=== PATIENT | female | born 1985 | race American Indian/Alaskan Native ===

== ENCOUNTER 2017-06-10 09:45 | Inpatient (IN) | payer OTHER ==
[2017-06-10 09:51] VITALS: BMI 30.8
[2017-06-10] MEDS ORDERED: Enoxaparin 30 mg Syringe SC STA (09:57)
--- NOTE | 2017-06-10 10:03 | C.PDOC ---
History Of Present Illness SUDDEN ONSET SOB SINCE THIS MORNING. PS AWOKE "NORMALLY", STARTED DOING ROUTINE ACTIVITY AND SUDDENLY BECAME SOB. WORSE W LIGHT EXERTION. CURRENTLY CO SOB AT REST. NO ASSOC CP. +FLIGT 06/06, HAD R ANKLE SWELLING BUT RESOLVED. SIM R ANKLE SWELLING 1 MO AGO SP OUTPT DOPPLER "BUT WAS NEGATIVE", PS WAS TOLD WAS DUE TO HERNIATED DISC. NO OTHER ASSOC SX EXAM MILD DIST NONTOXIC HEENT NEG LUNGS CTA B/L NO W/R/R +TACHYPNEA NO RETRACTIONS APPEARS WINDED AFTER PROLONGED TALKING CV RRR SINUS TACH EXT +R LEG SWELL NO EDEMA NONTEND SKIN NEG REMAINDE RNEG History Per: Patient History/Exam Limitations: no limitations Onset/Duration Of Symptoms: Hrs Current Symptoms Are (Timing): Still Present Exacerbating Factor(s): Exertion (WORSE WITH LIGHT EXERTION) Associated Symptoms: Ankle/Leg Swelling (R ANKLE - RESOLVED). denies: Fever, Chills, Chest Pain Recent travel outside of the [place]: No Past Medical History Reviewed: Historical Data, Nursing Documentation, Vital Signs Vital Signs: Last Vital Signs Temp 97.5 F L 06/10/17 11:30 Pulse 123 H 06/10/17 11:30 Resp 20 06/10/17 11:30 BP 134/90 06/10/17 11:30 Pulse Ox 99 06/10/17 11:39 Family History: States: Unknown Family Hx - Social History Hx Alcohol Use: No Hx Substance Use: No Review Of Systems Except As Marked, All Systems Reviewed And Found Negative. Constitutional: Negative for: Fever, Chills Cardiovascular: Negative for: Chest Pain Respiratory: Positive for: SOB with Excertion. Negative for: Cough Gastrointestinal: Negative for: Nausea, Vomiting, Abdominal Pain Skin: Negative for: Rash Neurological: Negative for: Headache, Dizziness Physical Exam - Physical Exam Appears: Non-toxic, Other (MILD DISTRESS) Skin: Normal Color, Warm, Dry Head: Atraumatic, Normacephalic Eye(s): bilateral: Normal Inspection, PERRL, EOMI Ear(s): Bilateral: Normal Nose: Normal Oral Mucosa: Moist Throat: Normal, No Erythema, No Exudate Neck: Normal ROM, Supple Chest: Symmetrical Cardiovascular: Rhythm Regular (SINUS TACH) Respiratory: No Accessory Muscle Use, No Rales, No Rhonchi, No Wheezing, Other ( +TACHYPNEA, NO RETRACTIONS, APPEARS WINDED AFTER PROLONGED TALKING) Back: Normal Inspection Extremity: Normal ROM, Capillary Refill (< 2 SEC.), Other (+R LEG SWELL NO EDEMA NONTEND) Extremity: Bilateral: Normal Color And Temperature Neurological/Psych: Oriented x3, Normal Speech, Normal Cognition ED Course And Treatment - Laboratory Results Result Diagrams: 06/10/17 10:23 06/10/17 10:23 Urine POC: Negative ECG: Interpreted By Me ECG Rhythm: Sinus Tachycardia ECG Interpretation: Abnormal Rate From EC (BPM) O2 Sat by Pulse Oximetry: 99 (RA) Pulse Ox Interpretation: Normal - Radiology CXR: Interpreted by Me CXR Interpretation: Yes: No Acute Disease - CT Scan/US CT ANGIO CHEST Other Rad Studies (CT/US): Read By Radiologist, Radiology Report Reviewed CT/US Interpretation: FINDINGS: PULMONARY ARTERIES: There is a large central saddle like pulmonary arterial empolism. Its central to right sided extension is 1.3 cm anterior-posterior with a width of 4.9 cm. The left embolism is thinner almost 1/3 the width of the left main pulmonary artery. Emboli continuing to the left lower lobe pulmonary arterial branches unlikely those on the right as well. AORTA: No thoracic aortic aneurysm. LUNGS: . No nodule, mass or pulmonary consolidation. PLEURAL SPACES: Unremarkable. No effusion or pneuomothorax. HEART: Unremarkable. No cardiomegaly. No significant pericardial effusion. LYMPH NODES: Excluding any concomitant mild subcarinal or right perihilar lymphadenopathy is limited. No gross suspect lymphadenopathy appreciated. BONES, CHEST WALL: Unremarkable. No fracture or destructive lesion. OTHER FINDINGS: Unremarkable. IMPRESSION: large central saddle like pulmonary arterial empolism. . Findings were immediately called in to the ER and directly given to Dr. Green at 10:56 a.m. Progress - Re-Evaluation Re-evaluation Note: 06/10/17 09:57 VENOUS DUPLEX SCAN, CT ANGIO CHEST, EKG, CXR, BLOODWORK ORDERED. TREATED WITH LOVENOX. ON DIGITAL BUSINESS ANALYST. 06/10/17 10:11 DUE TO HIGH LIKELIHOOD OF PE, WILL TREAT NOW AND STAT CTA WITHOUT FULL RESULTS. 06/10/17 11:00 exam unch FROM PRIOR STABLE D/W DR CEJA MED FOUNDRY MOLDER WILL ADMIT PENDING CALLBACK DR VASQUEZ ICU 06/10/17 11:39 D/W DR VASQUEZ WILL EVAL IN ER 06/10/17 11:50 S/P EVAL DR VASQUEZ, STAT ECHO. ACCEPTS FOR ICU - Data Reviewed Data Reviewed: Lab, Diagnostic imaging, EKG, Old records - Critical Care Citical Care: Excluding Proc Time Critical Care Time: 120 minutes Disposition Counseled Patient/Family Regarding: Studies Performed, Diagnosis - Disposition Disposition: HOSPITALIZED Disposition Time: 11:01 Condition: SERIOUS - POA Present On Arrival: None - Clinical Impression Clinical Impression: Pulmonary embolism, Dyspnea - Scribe Statement The provider has reviewed the documentation as recorded by the Scribe SM All medical record entries made by the Scribe were at my direction and personally dictated by me. I have reviewed the chart and agree that the record accurately reflects my personal performance of the history, physical exam, medical decision making, and the department course for this patient. I have also personally directed, reviewed, and agree with the discharge instructions and disposition. Decision To Admit - Pt Status Changed To: Hospital Disposition Of: Inpatient - Admit Certification Admit to Inpatient:: After my assessment, the patient will require hospitalization for at least two midnights. This is because of the severity of symptoms shown, intensity of services needed, and/or the medical risk in this patient being treated as an outpatient. - InPatient: Physician Admission Certification: I certify that this patient requires 2 or more midnights of care for the following reason:: SEE NOTE - . Bed Request Type: ICU Admitting Physician: Victor M Ceja Jr. Patient Diagnosis: Pulmonary embolism, Dyspnea
[2017-06-10] MEDS ORDERED: Enoxaparin 150 mg Syringe SC STA (10:07)
[2017-06-10] MEDS ORDERED: Sodium Chloride 0.9% 1,000 ML IV ONE (10:11)
--- NOTE | 2017-06-10 10:12 | RAD ---
HISTORY: SOB, TACHY COMPARISON: None available. TECHNIQUE: Chest, one view. FINDINGS: Examination limited by habitus. LUNGS: No focal consolidation. Please note that chest x-ray has limited sensitivity for the detection of pulmonary masses. PLEURA: No significant pleural effusion identified. No definite pneumothorax . CARDIOVASCULAR: The cardiomediastinal silhouette appears within normal limits of size. OSSEOUS STRUCTURES: No acute osseous abnormality identified. VISUALIZED UPPER ABDOMEN: Unremarkable. OTHER FINDINGS: None. IMPRESSION: No focal consolidation, significant pleural effusion, or definite pneumothorax identified.
[2017-06-10] MEDS ORDERED: Iodixanol 320 MG/ML 100 ML BOTTLE IV ONE (10:14)
[2017-06-10 10:26] LABS: BASO % 0.4 % (0.0-2.0); EOS # 0.2 K/uL (0.0-0.7); EOS % 2.9 % (0.0-4.0); LYMPH # 1.3 K/uL (1.0-4.3); LYMPH % 18.5 % (20.0-40.0); MEAN CORPUSCULAR HEMOGLOBIN 28.8 pg (27.0-31.0); MEAN CORPUSCULAR HGB CONC 33.9 g/dL (33.0-37.0); MEAN PLATELET VOLUME 8.5 fL (7.2-11.7); MONO # 0.3 K/uL (0.0-0.8); MONO % 4.5 % (0.0-10.0); NRBC % 0.1 % (0.0-2.0); RED CELL DISTRIBUTION WIDTH 12.4 % (11.5-14.5); WHITE BLOOD COUNT 7.2 K/uL (4.8-10.8)
[2017-06-10 10:39] LABS: ALB/GLOB RATIO 1.1 (1.0-2.1); ALKALINE PHOSPHATASE 74 U/L (38-126); ALT/SGPT 18 U/L (9-52); AST/SGOT 18 U/L (14-36); BILIRUBIN,TOTAL 0.4 mg/dL (0.2-1.3); BLOOD UREA NITROGEN 9 mg/dL (7-17); CALCIUM 9.5 mg/dl (8.6-10.4); CARBON DIOXIDE 23 mmol/L (22-30); CHLORIDE 104 mmol/L (98-107); GFR AFRICAN-AMERICAN > 60; GLUCOSE,RANDOM 90 mg/dL (65-105); SODIUM 143 mmol/L (132-148); TOTAL PROTEIN 7.6 g/dL (6.3-8.3)
--- NOTE | 2017-06-10 11:07 | CT ---
PROCEDURE: CT Chest with contrast (Pulmonary Angiogram) HISTORY: SOB TACHY COMPARISON: None available. TECHNIQUE: Axial computed tomography images were obtained of the chest in the pulmonary arterial phase of enhancement. Coronal and sagittal reformatted images were created and reviewed. Intravenous contrast dose: 100 mL Visipaque 320 Radiation dose: Total exam DLP = 596 mGy-cm. This CT exam was performed using one or more of the following dose reduction techniques: Automated exposure control, adjustment of the mA and/or kV according to patient size, and/or use of iterative reconstruction technique. FINDINGS: PULMONARY ARTERIES: There is a large central saddle like pulmonary arterial empolism. Its central to right sided extension is 1.3 cm anterior-posterior with a width of 4.9 cm The left embolism is thinner almost 1/3 the width of the left main pulmonary artery. Emboli continuing to the left lower lobe pulmonary arterial branches unlikely those on the right as well AORTA: No thoracic aortic aneurysm. LUNGS: . No nodule, mass or pulmonary consolidation. PLEURAL SPACES: Unremarkable. No effusion or pneuomothorax. HEART: Unremarkable. No cardiomegaly. No significant pericardial effusion. LYMPH NODES: Excluding any concomitant mild subcarinal or right perihilar lymphadenopathy is limited. No gross suspect lymphadenopathy appreciated BONES, CHEST WALL: Unremarkable. No fracture or destructive lesion OTHER FINDINGS: Unremarkable. IMPRESSION: large central saddle like pulmonary arterial empolism. . Findings were immediately called in to the ER and directly given to Dr. Green at 10:56 a.m.
--- NOTE | 2017-06-10 15:00 | CP.PCM.CON ---
<TipIvánángel - Last Filed: 06/10/17 16:57> History of Present Illness - History of Present Illness History of Present Illness: Resident Consult Note for Dr. Aparicio 32 year old female with no significant past medical history presents to the ED for shortness of breath after waking up this morning. Patient states the shortness of breath had a sudden onset and it is worse with minimal exertion. Patient flew in from [place] this past weekend, stating that her flight was only 2 hours in length. Patient denies having chest pain or prior history of the same. Patient also denies having smoking, family history of blood clots nor cardiac conditions. Patient states an ED staff pointed out that she has right calf swelling, she did not notice it herself. Patient is currently oral contraceptive pills. Patient's CT chest was found to have a large central saddle like PE. Cardiology service was consulted for pulmonary emboli. Review of Systems - Constitutional Constitutional: As Per HPI. absent: Chills, Fever, Weakness - EENT Eyes: As Per HPI. absent: Change in Vision, Loss of Vision Ears: As Per HPI. absent: Dizziness Nose/Mouth/Throat: As Per HPI. absent: Nasal Congestion, Dry Mouth - Cardiovascular Cardiovascular: As Per HPI, Dyspnea, Dyspnea on Exertion, Leg Edema. absent: Chest Pain - Respiratory Respiratory: As Per HPI, Dyspnea, Dyspnea on Exertion. absent: Cough, Hemoptysis, Chest Congestion - Gastrointestinal Gastrointestinal: As Per HPI. absent: Abdominal Pain, Diarrhea, Nausea, Vomiting - Musculoskeletal Musculoskeletal: As Per HPI. absent: Numbness, Tingling - Integumentary Integumentary: As Per HPI, Swelling. absent: Change in Hair, Skin Pain - Neurological Neurological: As Per HPI. absent: Dizziness, Numbness, Loss of Vision, Tremor, Weakness - Psychiatric Psychiatric: As Per HPI, Anxiety - Endocrine Endocrine: As Per HPI - Hematologic/Lymphatic Hematologic: As Per HPI Past Patient History - Past Social History Smoking Status: Never Smoked - CARDIAC Hx Cardiac Disorders: No - PULMONARY Hx Respiratory Disorders: No - NEUROLOGICAL Hx Neurological Disorder: No - ENDOCRINE/METABOLIC Hx Endocrine Disorders: No - HEMATOLOGICAL/ONCOLOGICAL Hx Blood Disorders: No Hx Blood Transfusions: No - MUSCULOSKELETAL/RHEUMATOLOGICAL Hx Musculoskeletal Disorders: No Hx Falls: Yes - GASTROINTESTINAL Hx Gastrointestinal Disorders: No - PSYCHIATRIC Hx Psychophysiologic Disorder: No Hx Substance Use: No - SURGICAL HISTORY Hx Surgeries: No - ANESTHESIA Hx Anesthesia: No Meds Allergies/Adverse Reactions: Allergies Allergy/AdvReac Type Severity Reaction Status Date / Time NSAIDS (Non-Steroidal AdvReac Verified 06/10/17 09:49 Anti-Inflamma Physical Exam - Constitutional Appears: Well, Non-toxic, No Acute Distress - Head Exam Head Exam: ATRAUMATIC, NORMAL INSPECTION - Eye Exam Eye Exam: Normal appearance Pupil Exam: PERRL - ENT Exam ENT Exam: Mucous Membranes Moist - Neck Exam Neck exam: Positive for: Normal Inspection - Respiratory Exam Respiratory Exam: Clear to Auscultation Bilateral, NORMAL BREATHING PATTERN. absent: Wheezes, Respiratory Distress - Cardiovascular Exam Cardiovascular Exam: REGULAR RHYTHM, +S1, +S2 - GI/Abdominal Exam GI & Abdominal Exam: Normal Bowel Sounds, Soft. absent: Tenderness - Extremities Exam Extremities exam: Positive for: pedal pulses present Additional comments: slight right lower extremity swelling, no erythema, no significant difference in temperature compared to the left - Neurological Exam Neurological exam: Alert, Oriented x3 - Psychiatric Exam Psychiatric exam: Normal Affect, Normal Mood - Skin Skin Exam: Dry, Normal Color, Warm Results - Vital Signs Recent Vital Signs: Last Vital Signs Temp 98.2 F 06/10/17 12:25 Pulse 116 H 06/10/17 14:25 Resp 25 H 06/10/17 14:25 BP 145/93 H 06/10/17 14:25 Pulse Ox 100 06/10/17 14:25 - Labs Result Diagrams: 06/10/17 10:23 06/10/17 10:23 Assessment & Plan - Assessment and Plan (Free Text) Assessment: Pulmonary embolus -CT chest positive for central saddle like pulmonary arterial embolism -Lower extremity ultrasound positive for right LE DVT -Echo showed enlarged right ventricle, along with other findings suggestive of large PE -Patient is currently hemodynamically stable -Lovenox given in the ED -NPO -EKOS planned this evening with Dr. Aparicio Case discussed with attending Dr. Aparicio <Vinay Aparicio - Last Filed: 06/21/17 21:44> Results - Vital Signs Recent Vital Signs: Last Vital Signs Temp 98 F 06/13/17 20:00 Pulse 127 H 06/13/17 22:04 Resp 31 H 06/13/17 22:04 BP 127/53 L 06/13/17 22:04 Pulse Ox 100 06/13/17 22:04 - Labs Result Diagrams: 06/13/17 15:01 06/13/17 06:20 Assessment & Plan - Assessment and Plan (Free Text) Plan: Patient seen and evaluated. Large PE. Patient with stable BP Dilated RV and elevated PA pressure D/W patient about EKOS thrombolytic therapy Explained the benefits of thrombus lysis in Lungs and risks of bleeding Patient and family agreed for EKOS lytic therapy
--- NOTE | 2017-06-10 17:10 | CP.PCM.HP ---
History of Present Illness - History of Present Illness History of Present Illness: CC: SOB since this morning HPI: Patient is a 32 year old female with PMH of L4-L5 disc extrusion who presents with SOB since this morning. She denies any previous similar incident. She stated that this morning she woke up and noticed she was short of breath but continued to get ready to go to work. While at work, symptoms did not improve and she came to the ED. She reports recent travel to [place] this past Friday06/06/17 which was a 2.5 hour flight and flew back last night. She takes OCP Tri-Lingah daily. She notes right ankle swelling on Friday06/06/17 that resolved same day. She denies any headaches, fevers, dizziness, chest pain, palpitations, n/v/d/c, weakness, tingling, numbness. She also denies any recent illness or sick contacts. PMHx: L4-L5 disc extrusion diagnosed 1 month ago PSHx: none Meds: OCP Tri-Lingah Allergies: Naproxen - right leg swelling FamHx: none Social Hx: denies tobacco and illicit drug use, social EtOH use. 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 Lives with sister in [place]. PMD: Dr. Grewal Present on Admission - Present on Admission Any Indicators Present on Admission: No Review of Systems - Constitutional Constitutional: absent: Chills, Fatigue, Fever - EENT Nose/Mouth/Throat: absent: Nasal Congestion - Cardiovascular Cardiovascular: absent: Chest Pain - Respiratory Respiratory: absent: Cough, Dyspnea, Wheezing - Gastrointestinal Gastrointestinal: absent: Abdominal Pain, Constipation, Diarrhea - Genitourinary Genitourinary: absent: Dysuria - Musculoskeletal Musculoskeletal: Back Pain - Neurological Neurological: absent: Dizziness, Headaches, Tingling, Weakness - Hematologic/Lymphatic Hematologic: absent: Easy Bleeding Past Patient History - Past Social History Smoking Status: Never Smoked - CARDIAC Hx Cardiac Disorders: No - PULMONARY Hx Respiratory Disorders: No - NEUROLOGICAL Hx Neurological Disorder: No - ENDOCRINE/METABOLIC Hx Endocrine Disorders: No - HEMATOLOGICAL/ONCOLOGICAL Hx Blood Disorders: No Hx Blood Transfusions: No - MUSCULOSKELETAL/RHEUMATOLOGICAL Hx Musculoskeletal Disorders: No Hx Falls: Yes - GASTROINTESTINAL Hx Gastrointestinal Disorders: No - PSYCHIATRIC Hx Psychophysiologic Disorder: No Hx Substance Use: No - SURGICAL HISTORY Hx Surgeries: No - ANESTHESIA Hx Anesthesia: No Meds Allergies/Adverse Reactions: Allergies Allergy/AdvReac Type Severity Reaction Status Date / Time NSAIDS (Non-Steroidal AdvReac Verified 06/10/17 09:49 Anti-Inflamma Physical Exam - Head Exam Head Exam: ATRAUMATIC - Eye Exam Eye Exam: EOMI Pupil Exam: NORMAL ACCOMODATION, PERRL - ENT Exam ENT Exam: Mucous Membranes Moist - Neck Exam Neck exam: Positive for: Normal Inspection - Respiratory Exam Respiratory Exam: Clear to Auscultation Bilateral, NORMAL BREATHING PATTERN. absent: Rales, Rhonchi, Wheezes - Cardiovascular Exam Cardiovascular Exam: REGULAR RHYTHM, +S1, +S2 - GI/Abdominal Exam GI & Abdominal Exam: Normal Bowel Sounds, Soft. absent: Distended, Tenderness - Extremities Exam Extremities exam: Positive for: normal capillary refill, normal inspection. Negative for: calf tenderness - Back Exam Back exam: NORMAL INSPECTION - Neurological Exam Neurological exam: Oriented x3 - Psychiatric Exam Psychiatric exam: Normal Affect, Normal Mood - Skin Skin Exam: Dry, Intact, Normal Color, Warm Results - Vital Signs Recent Vital Signs: Last Vital Signs Temp 98.1 F 06/10/17 16:00 Pulse 121 H 06/10/17 17:00 Resp 26 H 06/10/17 17:00 BP 140/84 06/10/17 16:25 Pulse Ox 100 06/10/17 17:00 - Labs Result Diagrams: 06/10/17 10:23 06/10/17 10:23 Assessment & Plan (1) Pulmonary embolism Assessment and Plan: Large central saddle PE with hemodynamic stability and no chest pain - cardiology consult, Dr Aparicio - CT angio chest shows large central saddle like pulmonary arterial embolism - catheter directed thromboysis - ECHO shows right heart strain, pending official report - enoxaparin 150mg sc once given twice in ED - duplex scan LE - pending results - npo except meds Status: Acute (2) Prophylactic measure Assessment and Plan: Diet: npo except meds GI: pepcid 20mg po daily DVT: catheter directed thrombolysis Status: Acute
--- NOTE | 2017-06-10 17:11 | CP.PCM.CON ---
<Jones Suggs - Last Filed: 06/10/17 18:06> History of Present Illness - History of Present Illness History of Present Illness: CC: SOB since this morning HPI: Patient is a 32 year old female with PMH of L4-L5 disc extrusion who presents with SOB since this morning. She denies any previous similar incident. She notes that this morning she woke up and noticed she was short of breath but continued to get ready to go to work. While at work, symptoms did not improve and she came to the ED. She reports recent travel to [place] this past Wednesday 06/06 which was a 2.5 hour flight and flew back last night. She takes OCP Tri-Lingah daily. She notes right ankle swelling on Wednesday 06/06 that resolved same day. She denies any headaches, fevers, dizziness, chest pain, palpitations, n/v/d/c, weakness, tingling, numbness. She also denies any recent illness or sick contacts. PMH: L4-L5 disc extrusion diagnosed 1 month ago Meds: OCP Tri-Lingah PSH: none Allergies: Naproxen - right leg swelling FH: none Social Hx: denies tobacco and illicit drug use, social EtOH use. 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 Lives with sister in [place]. PMD: Dr. Grewal Review of Systems - Constitutional Constitutional: absent: Chills, Fatigue, Fever - EENT Eyes: absent: Blurred Vision Ears: absent: Ear Pain Nose/Mouth/Throat: absent: Nasal Congestion - Cardiovascular Cardiovascular: absent: Chest Pain - Respiratory Respiratory: absent: Cough, Dyspnea, Wheezing - Gastrointestinal Gastrointestinal: absent: Abdominal Pain, Constipation, Diarrhea - Genitourinary Genitourinary: absent: Dysuria - Musculoskeletal Musculoskeletal: Back Pain. absent: Myalgias - Integumentary Integumentary: absent: Bleeding Lesions - Neurological Neurological: absent: Dizziness, Focal Weakness Past Patient History - Past Social History Smoking Status: Never Smoked - CARDIAC Hx Cardiac Disorders: No - PULMONARY Hx Respiratory Disorders: No - NEUROLOGICAL Hx Neurological Disorder: No - ENDOCRINE/METABOLIC Hx Endocrine Disorders: No - HEMATOLOGICAL/ONCOLOGICAL Hx Blood Disorders: No Hx Blood Transfusions: No - MUSCULOSKELETAL/RHEUMATOLOGICAL Hx Musculoskeletal Disorders: No Hx Falls: Yes - GASTROINTESTINAL Hx Gastrointestinal Disorders: No - PSYCHIATRIC Hx Psychophysiologic Disorder: No Hx Substance Use: No - SURGICAL HISTORY Hx Surgeries: No - ANESTHESIA Hx Anesthesia: No Meds Allergies/Adverse Reactions: Allergies Allergy/AdvReac Type Severity Reaction Status Date / Time NSAIDS (Non-Steroidal AdvReac Verified 06/10/17 09:49 Anti-Inflamma Physical Exam - Head Exam Head Exam: ATRAUMATIC - Eye Exam Eye Exam: EOMI, PERRL - ENT Exam ENT Exam: Mucous Membranes Moist - Neck Exam Neck exam: Positive for: Normal Inspection - Respiratory Exam Respiratory Exam: Clear to Auscultation Bilateral, NORMAL BREATHING PATTERN. absent: Rales, Rhonchi, Wheezes - Cardiovascular Exam Cardiovascular Exam: REGULAR RHYTHM, +S1, +S2 - GI/Abdominal Exam GI & Abdominal Exam: Normal Bowel Sounds, Soft. absent: Distended - Extremities Exam Extremities exam: Positive for: normal inspection. Negative for: calf tenderness - Back Exam Back exam: tenderness - Neurological Exam Neurological exam: Alert, Oriented x3 - Psychiatric Exam Psychiatric exam: Normal Affect, Normal Mood - Skin Skin Exam: Dry, Intact, Normal Color, Warm Results - Vital Signs Recent Vital Signs: Last Vital Signs Temp 98.1 F 06/10/17 16:00 Pulse 121 H 06/10/17 17:00 Resp 26 H 06/10/17 17:00 BP 140/84 06/10/17 16:25 Pulse Ox 100 06/10/17 17:00 - Labs Result Diagrams: 06/10/17 10:23 06/10/17 10:23 Assessment & Plan - Assessment and Plan (Free Text) Assessment: (1) Pulmonary embolism Assessment and Plan: Large central saddle PE with hemodynamic stability and no chest pain - CT angio chest shows large central saddle like pulmonary arterial embolism - catheter directed thromboysis - cardiology consult, Dr Aparicio - ECHO shows right heart strain, pending official report - enoxaparin 150mg sc once given twice in ED - duplex scan LE - pending results - npo except meds Status: Acute (2) Prophylactic measure Diet: npo except meds DVT: catheter directed thrombolysis, hold dvt prophylaxis for now GI: pepcid 20mg po daily <Ben Smart - Last Filed: 06/10/17 18:10> Results - Vital Signs Recent Vital Signs: Last Vital Signs Temp 98.1 F 06/10/17 16:00 Pulse 121 H 06/10/17 17:00 Resp 26 H 06/10/17 17:00 BP 140/84 06/10/17 16:25 Pulse Ox 100 06/10/17 17:00 - Labs Result Diagrams: 06/10/17 10:23 06/10/17 10:23 Attending/Attestation - Attestation I have personally seen and examined this patient.: Yes I have fully participated in the care of the patient.: Yes I have reviewed all pertinent clinical information: Yes Notes (Text): 06/10/17 18:08 Patient seen and examined. 32-year-old female on control pills presented with sudden onset shortness of breath started this morning. Denies chest pain, denies dizziness. Patient had right leg pain last Friday which subsided. CAT scan of chest consistent with large pulmonary embolism with positive DVT right leg Patient started on Lovenox Cardiology consult obtained for possible catheter directed thrombolysis secondary to clot burden and right-sided strain on echocardiogram Continue ICU monitoring
--- NOTE | 2017-06-10 19:09 | CARD ---
APPROVED REPORT EXAM: Two-dimensional and M-mode echocardiogram with Doppler and color Doppler. Other Information Quality : GoodRhythm : NSR INDICATION Dyspnea SOB, PULM EMBOLUS, ABN TROP M-Mode DIMENSIONS RVDd2.47 (2.1-3.2cm)Left Atrium (MM)2.47 (2.5-4.0cm) IVSd1.46 (0.7-1.1cm)Aortic Root2.41 (2.2-3.7cm) LVDd3.97 (4.0-5.6cm)Aortic Cusp Exc.2.08 (1.5-2.0cm) PWd0.94 (0.7-1.1cm)FS (%) 41 % LVDs2.34 (2.0-3.8cm)LVEF (%)72 (>50%) Mitral Valve MV E Ovrwxmiq94.6cm/sMV A Mjwksock37.1cm/sE/A ratio0.6 TDI E/Lateral E'0.0E/Medial E'0.0 Tricuspid Valve TR Peak Iucwhlme267qb/sTR Peak Gr.[id number] LEFT VENTRICLE The left ventricle is normal size. There is normal left ventricular wall thickness. The left ventricular ejection fraction is within the normal range. Paradoxic septum RIGHT VENTRICLE The right ventricle is mildly dilated. There is normal right ventricular wall thickness. RV Systolic function is mildly reduced. There is a thrombus suspected in the right Atrium and right ventricle. ATRIA The left atrium size is normal. The right atrium size is normal. AORTIC VALVE The aortic valve is normal in structure. No aortic regurgitation is present. MITRAL VALVE The mitral valve is normal in structure. There is no evidence of mitral valve prolapse. TRICUSPID VALVE There is mild tricuspid regurgitation. There is moderate to severe pulmonary hypertension. GREAT VESSELS The aortic root is normal in size. The IVC is dilated. <Conclusion> The right ventricle is mildly dilated. RV Systolic function is mildly reduced. Paradoxic septum There is a thrombus suspected in the right Atrium and right ventricle. There is mild tricuspid regurgitation. There is moderate to severe pulmonary hypertension.
[2017-06-10] MEDS ORDERED: Lidocaine 2% Inj (20ml) ONE ×2 (20:11→21:06)
[2017-06-10] MEDS ORDERED: Midazolam 2 MG/2 ML VIAL ONE ×2 (20:11→21:09)
[2017-06-10] MEDS: Sodium Chloride 0.9% 1,000 ML IV SCH ×3 (20:15→22:50)
[2017-06-10] MEDS ORDERED: Heparin25000 units/250ml 1/2NS 25,000 UNITS/250 ML BAG IV ONE ×2 (20:30→20:45)
[2017-06-10] MEDS ORDERED: Iohexol 350mgl/ml 50 ML ONE (20:50)
[2017-06-10] MEDS ORDERED: SODIUM CHLORIDE 0.9% IV ONE (21:00)
[2017-06-10] MEDS ORDERED: ALTEPLASE IV ONE (21:00)
[2017-06-10] MEDS ORDERED: Iodixanol 320 MG/ML 200 ML BOTTLE IV ONE (21:48)
[2017-06-10] MEDS ORDERED: Oxycodone/Acetaminophen 5/325 mg Tab PO PRN (22:39)
[2017-06-10] MEDS: Oxycodone/Acetaminophen 5/325 mg Tab PO PRN (23:08)
--- NOTE | 2017-06-11 | CP.PCM.CON ---
History of Present Illness - History of Present Illness History of Present Illness: 32 F with DVT/PE with RV strain and Severe pulmonary HTN Will schedule for EKOS thrombolytic therapy today Past Patient History - Past Social History Smoking Status: Never Smoked - CARDIAC Hx Cardiac Disorders: No - PULMONARY Hx Respiratory Disorders: No - NEUROLOGICAL Hx Neurological Disorder: No - ENDOCRINE/METABOLIC Hx Endocrine Disorders: No - HEMATOLOGICAL/ONCOLOGICAL Hx Blood Disorders: No Hx Blood Transfusions: No - MUSCULOSKELETAL/RHEUMATOLOGICAL Hx Musculoskeletal Disorders: No Hx Falls: Yes - GASTROINTESTINAL Hx Gastrointestinal Disorders: No - PSYCHIATRIC Hx Psychophysiologic Disorder: No Hx Substance Use: No - SURGICAL HISTORY Hx Surgeries: No - ANESTHESIA Hx Anesthesia: No Meds Allergies/Adverse Reactions: Allergies Allergy/AdvReac Type Severity Reaction Status Date / Time NSAIDS (Non-Steroidal AdvReac Verified 06/10/17 09:49 Anti-Inflamma - Medications Medications: Current Medications Famotidine (Pepcid) 20 mg PO BID [facility] Sodium Chloride (Sodium Chloride 0.9%) 1,000 mls @ 75 mls/hr IV .[id number] [facility] Last Admin: 06/10/17 20:15 Dose: 75 mls/hr Alteplase, Recombinant 15 mg/ (Sodium Chloride) 250 mls @ 16.7 mls/hr IV ONCE ONE Stop: 06/11/17 11:58 Last Admin: 06/10/17 23:43 Dose: Not Given Alteplase, Recombinant 15 mg/ (Sodium Chloride) 250 mls @ 16.7 mls/hr IV ONCE ONE Stop: 06/11/17 11:58 Last Admin: 06/10/17 22:50 Dose: 16.7 mls/hr Heparin Sodium/Sodium Chloride (Heparin 74753 Units/250ml 1/2 Normal Saline) 25 ,000 units in 250 mls @ 5 mls/hr IV ONCE ONE Stop: 06/12/17 22:44 Last Admin: 06/10/17 22:50 Dose: 5 mls/hr Sodium Chloride (Sodium Chloride 0.9%) 1,000 mls @ 35 mls/hr IV .Q24H [facility] Last Admin: 06/10/17 22:50 Dose: Not Given Sodium Chloride (Sodium Chloride 0.9%) 1,000 mls @ 35 mls/hr IV .Q24H [facility] Last Admin: 06/10/17 22:50 Dose: 35 mls/hr Oxycodone/Acetaminophen (Percocet 5/325 Mg Tab) 1 tab PO Q4H PRN PRN Reason: Pain, moderate (4-7) Stop: 06/13/17 22:40 Oxycodone/Acetaminophen (Percocet 5/325 Mg Tab) 2 tab PO Q4H PRN PRN Reason: Pain, severe (8-10) Stop: 06/13/17 22:41 Last Admin: 06/10/17 23:08 Dose: 2 tab Results - Vital Signs Recent Vital Signs: Last Vital Signs Temp 99.3 F 06/10/17 20:00 Pulse 121 H 06/10/17 20:10 Resp 19 06/10/17 20:10 BP 154/90 H 06/10/17 20:14 Pulse Ox 97 06/10/17 20:10 - Labs Result Diagrams: 06/13/17 15:01 06/13/17 06:20 Assessment & Plan - Assessment and Plan (Free Text) Assessment: Patient s/p EKOS catheter insertion Single catheter inserted from RV out flow to Lt. PA Due to tortuously and occlusive thrombus difficult to cannulate Rt. PA tPA 4mg bolus now 1mg.hr infusion Heparin 500 units/hr Will reassess in am Continued observation overnight
--- NOTE | 2017-06-11 00:04 | CP.PCM.PN ---
Subjective - Date & Time of Evaluation Date of Evaluation: 06/10/17 Time of Evaluation: 11:00 - Subjective Subjective: Patient s/p EKOS catheter insertion Single catheter inserted from RV out flow to Lt. PA Due to tortuously and occlusive thrombus difficult to cannulate Rt. PA tPA 4mg bolus now 1mg.hr infusion Heparin 500 units/hr Will reassess in am Continued observation overnight Objective - Vital Signs/Intake and Output Vital Signs (last 24 hours): Temp Pulse Resp BP Pulse Ox 99.3 F 121 H 19 154/90 H 97 06/10/17 20:00 06/10/17 20:10 06/10/17 20:10 06/10/17 20:14 06/10/17 20:10 Intake and Output: 06/10/17 06/11/17 18:59 06:59 Intake Total 100 Output Total 1350 Balance -1250 - Medications Medications: Current Medications Famotidine (Pepcid) 20 mg PO BID [facility] Sodium Chloride (Sodium Chloride 0.9%) 1,000 mls @ 75 mls/hr IV .[id number] [facility] Last Admin: 06/10/17 20:15 Dose: 75 mls/hr Alteplase, Recombinant 15 mg/ (Sodium Chloride) 250 mls @ 16.7 mls/hr IV ONCE ONE Stop: 06/11/17 11:58 Last Admin: 06/10/17 23:43 Dose: Not Given Alteplase, Recombinant 15 mg/ (Sodium Chloride) 250 mls @ 16.7 mls/hr IV ONCE ONE Stop: 06/11/17 11:58 Last Admin: 06/10/17 22:50 Dose: 16.7 mls/hr Heparin Sodium/Sodium Chloride (Heparin 22942 Units/250ml 1/2 Normal Saline) 25 ,000 units in 250 mls @ 5 mls/hr IV ONCE ONE Stop: 06/12/17 22:44 Last Admin: 06/10/17 22:50 Dose: 5 mls/hr Sodium Chloride (Sodium Chloride 0.9%) 1,000 mls @ 35 mls/hr IV .Q24H [facility] Last Admin: 06/10/17 22:50 Dose: Not Given Sodium Chloride (Sodium Chloride 0.9%) 1,000 mls @ 35 mls/hr IV .Q24H [facility] Last Admin: 06/10/17 22:50 Dose: 35 mls/hr Oxycodone/Acetaminophen (Percocet 5/325 Mg Tab) 1 tab PO Q4H PRN PRN Reason: Pain, moderate (4-7) Stop: 06/13/17 22:40 Oxycodone/Acetaminophen (Percocet 5/325 Mg Tab) 2 tab PO Q4H PRN PRN Reason: Pain, severe (8-10) Stop: 06/13/17 22:41 Last Admin: 06/10/17 23:08 Dose: 2 tab - Labs Labs: PT 11.2 SECONDS (9.7-12.2) 06/10/17 10:23 INR 1.0 06/10/17 10:23 APTT 31 SECONDS (21-34) 06/10/17 10:23
[2017-06-11] MEDS: Sodium Chloride 0.9% 1,000 ML IV SCH ×5 (01:57→22:22)
[2017-06-11] MEDS: Oxycodone/Acetaminophen 5/325 mg Tab PO PRN ×2 (06:00→21:25)
[2017-06-11 06:24] LABS: BASO % 0.4 % (0.0-2.0); EOS % 0.4 % (0.0-4.0); HEMATOCRIT 37.1 % (34.0-47.0); LYMPH # 1.5 K/uL (1.0-4.3); LYMPH % 16.9 % (20.0-40.0); MEAN CELL VOLUME 85.4 fL (81.0-99.0); MEAN CORPUSCULAR HEMOGLOBIN 28.9 pg (27.0-31.0); MEAN CORPUSCULAR HGB CONC 33.8 g/dL (33.0-37.0); MEAN PLATELET VOLUME 8.9 fL (7.2-11.7); MONO # 0.4 K/uL (0.0-0.8); MONO % 4.2 % (0.0-10.0); RED CELL DISTRIBUTION WIDTH 12.6 % (11.5-14.5); WHITE BLOOD COUNT 9.1 K/uL (4.8-10.8)
[2017-06-11 06:41] LABS: INR 1.1
[2017-06-11 06:46] LABS: BLOOD UREA NITROGEN 6 mg/dL (7-17); CARBON DIOXIDE 23 mmol/L (22-30); CHLORIDE 107 mmol/L (98-107); GFR AFRICAN-AMERICAN > 60; GLUCOSE,RANDOM 111 mg/dL (65-105); POTASSIUM 4.2 mmol/L (3.6-5.2); SODIUM 137 mmol/L (132-148)
[2017-06-11] MEDS ORDERED: Heparin25000 units/250ml 1/2NS 25,000 UNITS/250 ML BAG IV ONE (10:30)
--- NOTE | 2017-06-11 13:43 | CP.PCM.CON ---
History of Present Illness - History of Present Illness History of Present Illness: Patient is a 32 year old female with no past medical history who presented to the ED with shortness of breath for one day. Patient is consulted for right lower extremity DVT. Patient reported having right leg pain in March 2017, went to her primary doctor and was told its likely due to disc degenerative disease. She had an ultrasound of her right lower extremity which showed no DVTs. The pain resolved 3-4 weeks later. She had two episodes of ankle swelling, 1 of which was attributed to taking naproxen. She recently traveled to [place] by plane and experienced right ankle swelling that resolved shortly after. A chest CT was done in the ED, which showed a large central saddle like pulmonary embolism. Venous doppler of her right lower extremity showed presence of DVT. Patient underwent EKOs thrombolytic therapy with Dr. Aparicio on 06/10/17. She currently denies having leg pain and swelling, chest pain, palpitations, breathing difficulty, nausea, and vomiting. PMD: Dr. Wilson PMHx: denies SurgHx: denies FamHx: denies SocHx: denies tobacco and drug use; drinks socially. Allergies: naproxen (ankle swelling) Review of Systems - Constitutional Constitutional: absent: Fever, Headache - EENT Ears: absent: Dizziness - Cardiovascular Cardiovascular: Dyspnea (improved, on nasal cannula). absent: Chest Pain, Leg Edema, Palpitations - Respiratory Respiratory: Cough, Dyspnea (improved, on nasal cannula) - Gastrointestinal Gastrointestinal: absent: Abdominal Pain, Constipation, Diarrhea, Nausea, Vomiting - Musculoskeletal Musculoskeletal: absent: Numbness, Tingling - Neurological Neurological: absent: Dizziness, Numbness, Headaches, Tingling - Endocrine Endocrine: absent: Palpitations Past Patient History - Past Social History Smoking Status: Never Smoked - CARDIAC Hx Cardiac Disorders: No - PULMONARY Hx Respiratory Disorders: No - NEUROLOGICAL Hx Neurological Disorder: No - ENDOCRINE/METABOLIC Hx Endocrine Disorders: No - HEMATOLOGICAL/ONCOLOGICAL Hx Blood Disorders: No Hx Blood Transfusions: No - MUSCULOSKELETAL/RHEUMATOLOGICAL Hx Musculoskeletal Disorders: No Hx Falls: Yes - GASTROINTESTINAL Hx Gastrointestinal Disorders: No - PSYCHIATRIC Hx Psychophysiologic Disorder: No Hx Substance Use: No - SURGICAL HISTORY Hx Surgeries: No - ANESTHESIA Hx Anesthesia: No Meds Allergies/Adverse Reactions: Allergies Allergy/AdvReac Type Severity Reaction Status Date / Time NSAIDS (Non-Steroidal AdvReac Verified 06/10/17 09:49 Anti-Inflamma - Medications Medications: Current Medications Famotidine (Pepcid) 20 mg PO BID [facility] Last Admin: 06/11/17 10:27 Dose: 20 mg Sodium Chloride (Sodium Chloride 0.9%) 1,000 mls @ 75 mls/hr IV .[id number] [facility] Last Admin: 06/11/17 01:57 Dose: 75 mls/hr Sodium Chloride (Sodium Chloride 0.9%) 1,000 mls @ 35 mls/hr IV .Q24H [facility] Last Admin: 06/10/17 22:50 Dose: Not Given Sodium Chloride (Sodium Chloride 0.9%) 1,000 mls @ 35 mls/hr IV .Q24H [facility] Last Admin: 06/10/17 22:50 Dose: 35 mls/hr Heparin Sodium/Sodium Chloride (Heparin 81199 Units/250ml 1/2 Normal Saline) 25 ,000 units in 250 mls @ 8 mls/hr IV ONCE ONE Stop: 06/12/17 17:44 Last Admin: 06/11/17 10:29 Dose: 8 mls/hr Oxycodone/Acetaminophen (Percocet 5/325 Mg Tab) 1 tab PO Q4H PRN PRN Reason: Pain, moderate (4-7) Stop: 06/13/17 22:40 Last Admin: 06/11/17 11:05 Dose: 1 tab Oxycodone/Acetaminophen (Percocet 5/325 Mg Tab) 2 tab PO Q4H PRN PRN Reason: Pain, severe (8-10) Stop: 06/13/17 22:41 Last Admin: 06/11/17 06:00 Dose: 2 tab Physical Exam - Head Exam Head Exam: ATRAUMATIC, NORMAL INSPECTION - Eye Exam Eye Exam: EOMI, Normal appearance - ENT Exam ENT Exam: Mucous Membranes Moist - Respiratory Exam Respiratory Exam: Decreased Breath Sounds, Clear to Auscultation Bilateral. absent: Rales, Rhonchi, Wheezes, Respiratory Distress - Cardiovascular Exam Cardiovascular Exam: Tachycardia, REGULAR RHYTHM, +S1, +S2 - GI/Abdominal Exam GI & Abdominal Exam: Hypoactive Bowel Sounds, Soft. absent: Distended, Firm, Guarding, Tenderness - Extremities Exam Extremities exam: Positive for: pedal pulses present. Negative for: pedal edema , tenderness - Neurological Exam Neurological exam: Alert, Oriented x3 - Psychiatric Exam Psychiatric exam: Normal Affect, Normal Mood - Skin Skin Exam: Dry, Intact, Normal Color, Warm Results - Vital Signs Recent Vital Signs: Last Vital Signs Temp 97.6 F 06/11/17 08:00 Pulse 97 H 06/11/17 12:00 Resp 21 06/11/17 12:00 BP 114/64 06/11/17 11:34 Pulse Ox 100 06/11/17 12:00 - Labs Result Diagrams: 06/12/17 04:16 06/12/17 04:16 Labs: Laboratory Results - last 24 hr 06/11/17 06/11/17 06/11/17 06:14 06:14 06:14 WBC 9.1 RBC 4.34 Hgb 12.5 Hct 37.1 MCV 85.4 MCH 28.9 MCHC 33.8 RDW 12.6 Plt Count 229 MPV 8.9 Neut % (Auto) 78.1 H Lymph % (Auto) 16.9 L Miner % (Auto) 4.2 Eos % (Auto) 0.4 Baso % (Auto) 0.4 Neut # 7.1 H Lymph # 1.5 Miner # 0.4 Eos # 0.0 Baso # 0.0 PT 12.0 INR 1.1 APTT 35 H Sodium 137 Potassium 4.2 Chloride 107 Carbon Dioxide 23 Anion Gap 12 BUN 6 L Creatinine 0.6 L Est GFR ( Amer) > 60 Est GFR (Non-Af Amer) > 60 Random Glucose 111 H Calcium 9.0 Assessment & Plan - Assessment and Plan (Free Text) Assessment: 32 year old female s/p EKOs thrombolytic therapy with right DVT and saddle PE. - No surgical intervention at this time. - Dr. Aparicio planning for further treatment; possible IV Filter - Will follow peripherally. Please call as needed. - Continue medical management as per ICU team.
--- NOTE | 2017-06-11 13:52 | CP.CCUPN ---
<Jones Suggs - Last Filed: 06/11/17 13:30> CCU Subjective - Physician Review Subjective (Free Text): Patient seen and examined at bedside with mother present. Patient not in acute distress, has no complaints. Denies chest pain, shortness of breath, cough, leg pain, abdominal pain, diarrhea, constipation. 06/11/17 13:30 CCU Objective - Vital Signs / Intake & Output Vital Signs (Last 4 hours): Vital Signs Pulse Resp BP Pulse Ox 06/11/17 12:00 97 H 21 100 06/11/17 11:50 90 22 100 06/11/17 11:40 91 H 22 100 06/11/17 11:34 98 H 26 H 114/64 100 06/11/17 11:30 95 H 24 06/11/17 11:20 99 H 17 06/11/17 11:10 97 H 25 H 100 06/11/17 11:00 100 H 24 06/11/17 10:50 96 H 24 06/11/17 10:40 96 H 24 06/11/17 10:34 101 H 25 H 132/72 100 06/11/17 10:30 99 H 25 H 98 06/11/17 10:20 92 H 23 100 06/11/17 10:10 97 H 21 06/11/17 10:00 99 H 26 H 100 06/11/17 09:50 103 H 24 06/11/17 09:40 91 H 21 06/11/17 09:34 89 22 118/71 100 Intake and Output (Last 8hrs): Intake & Output 06/10/17 06/11/17 06/11/17 22:59 06:59 14:59 Intake Total 231.7 1623.6 882.4 Output Total 1430 480 290 Balance -1198.3 1143.6 592.4 Weight 224 lb 13.944 oz Intake: Intake, IV Amount 131.7 1053.6 782.4 EKOS coolant port 35 280 210 EKOS drug port 16.7 133.6 83.4 right groin side port 5 40 39 right hand 75 600 450 Oral 100 570 100 Output: Urine 1430 480 290 Urethral (Horvath) 80 480 290 Urine, Voided 1350 Stool 0 0 0 Other: # Voids Urine, Voided 1 - Physical Exam Head: Positive for: Atraumatic Pupils: Positive for: PERRL Extroacular Muscles: Positive for: EOMI Mouth: Positive for: Moist Mucous Membranes Neck: Positive for: Normal Range of Motion Respiratory/Chest: Positive for: Clear to Auscultation. Negative for: Wheezes Cardiovascular: Positive for: Regular Rate and Rhythm, Normal S1, S2. Negative for: Murmurs Abdomen: Positive for: Normal Bowel Sounds. Negative for: Tenderness Upper Extremity: Positive for: Normal Inspection. Negative for: Edema Lower Extremity: Positive for: Normal Inspection. Negative for: Edema Neurological: Positive for: CN II-XII Intact, Speech Normal Skin: Positive for: Warm, Dry, Normal Color Psychiatric: Positive for: Alert, Oriented x 3, Normal Insight, Normal Concentration - Medications Active Medications: Active Medications Generic Name Dose Route Start Last Admin Trade Name Freq PRN Reason Stop Dose Admin Famotidine 20 mg 06/11/17 10:00 06/11/17 10:27 Pepcid PO 20 mg BID MADELAINE Administration Sodium Chloride 1,000 mls @ 75 mls/hr 06/10/17 19:30 06/11/17 01:57 Sodium Chloride 0.9% IV 75 mls/hr .[id number] MADELAINE Administration Sodium Chloride 1,000 mls @ 35 mls/hr 06/10/17 20:45 06/10/17 22:50 Sodium Chloride 0.9% IV Not Given .Q24H MADELAINE Sodium Chloride 1,000 mls @ 35 mls/hr 06/10/17 20:45 06/10/17 22:50 Sodium Chloride 0.9% IV 35 mls/hr .Q24H MADELAINE Administration Heparin Sodium/Sodium Chloride 25,000 units in 250 mls @ 8 mls/hr 06/11/17 10: 30 06/11/17 10:29 Heparin 10526 Units/250ml 1/2 Normal Saline IV 06/12/17 17:44 8 mls/hr ONCE ONE Administration Oxycodone/Acetaminophen 1 tab 06/10/17 22:39 06/11/17 11:05 Percocet 5/325 Mg Tab PO 06/13/17 22:40 1 tab Q4H PRN Administration Pain, moderate (4-7) Oxycodone/Acetaminophen 2 tab 06/10/17 22:40 06/11/17 06:00 Percocet 5/325 Mg Tab PO 06/13/17 22:41 2 tab Q4H PRN Administration Pain, severe (8-10) - Patient Studies Lab Studies: Lab Studies 06/11/17 06/11/17 06/11/17 Range/Units 06:14 06:14 06:14 WBC 9.1 (4.8-10.8) K/uL RBC 4.34 (3.80-5.20) Mil/uL Hgb 12.5 (11.0-16.0) g/dL Hct 37.1 (34.0-47.0) % MCV 85.4 (81.0-99.0) fL MCH 28.9 (27.0-31.0) pg MCHC 33.8 (33.0-37.0) g/dL RDW 12.6 (11.5-14.5) % Plt Count 229 (130-400) K/uL MPV 8.9 (7.2-11.7) fL Neut % (Auto) 78.1 H (50.0-75.0) % Lymph % (Auto) 16.9 L (20.0-40.0) % Barnes % (Auto) 4.2 (0.0-10.0) % Eos % (Auto) 0.4 (0.0-4.0) % Baso % (Auto) 0.4 (0.0-2.0) % Neut # 7.1 H (1.8-7.0) K/uL Lymph # 1.5 (1.0-4.3) K/uL Barnes # 0.4 (0.0-0.8) K/uL Eos # 0.0 (0.0-0.7) K/uL Baso # 0.0 (0.0-0.2) K/uL PT 12.0 (9.7-12.2) SECONDS INR 1.1 APTT 35 H (21-34) SECONDS Sodium 137 (132-148) mmol/L Potassium 4.2 (3.6-5.2) mmol/L Chloride 107 (98-107) mmol/L Carbon Dioxide 23 (22-30) mmol/L Anion Gap 12 (10-20) BUN 6 L (7-17) mg/dL Creatinine 0.6 L (0.7-1.2) MG/DL Est GFR ( Amer) > 60 Est GFR (Non-Af Amer) > 60 Random Glucose 111 H (65-105) mg/dL Calcium 9.0 (8.6-10.4) mg/dl Laboratory Results - last 24 hr 06/11/17 06/11/17 06/11/17 06:14 06:14 06:14 WBC 9.1 RBC 4.34 Hgb 12.5 Hct 37.1 MCV 85.4 MCH 28.9 MCHC 33.8 RDW 12.6 Plt Count 229 MPV 8.9 Neut % (Auto) 78.1 H Lymph % (Auto) 16.9 L Barnes % (Auto) 4.2 Eos % (Auto) 0.4 Baso % (Auto) 0.4 Neut # 7.1 H Lymph # 1.5 Barnes # 0.4 Eos # 0.0 Baso # 0.0 PT 12.0 INR 1.1 APTT 35 H Sodium 137 Potassium 4.2 Chloride 107 Carbon Dioxide 23 Anion Gap 12 BUN 6 L Creatinine 0.6 L Est GFR ( Amer) > 60 Est GFR (Non-Af Amer) > 60 Random Glucose 111 H Calcium 9.0 Review of Systems - Constitutional Constitutional: absent: Fever, Chills, Sweats - Cardiovascular Cardiovascular: UNREMARKABLE - Respiratory Respiratory: UNREMARKABLE - Gastrointestinal Gastrointestinal: UNREMARKABLE - Genitourinary Genitourinary: UNREMARKABLE - Musculoskeletal Musculoskeletal: UNREMARKABLE - Neurological Neurological: UNREMARKABLE Critical Care Progress Note - Nutrition Nutrition: Nutrition Category Date Time Status Liquid Diet [DIET] Diets 06/10/17 Dinner Active Assessment/Plan - Assessment and Plan (Free Text) Assessment: 32 year old F w sub-massive saddle PE s/p EKOS catheter insertion of left pulmonary artery Pulmonary: sub-massive saddle PE; - s/p EKOS of left pulmonary artery, right pulm artery difficult to cannulate - EKOS of right pulmonary artery planned today - CT angio chest shows large central saddle like pulmonary arterial embolism - ECHO shows right heart strain, RV dilation, decrease in RV systolic function - heparin 800 units/hr - tPA 0.5mg/hr - liquid diet - stop OCP control - cardiology consult, Dr Aparicio on board Heme: DVT of RLE - venous duplex scan abnormal for DVT in RLE - Vascular surgery consult, Dr Jeong on board, thrombectomy planned - heme consult, Dr Dameon Martinez on board - H/H stable Prophylactic measure: -Diet: npo except meds -DVT: therapeutic heparin -GI: pepcid 20mg po daily Rest of organ systems: no active issues <Ben Smart - Last Filed: 06/11/17 17:41> CCU Objective - Vital Signs / Intake & Output Vital Signs (Last 4 hours): Vital Signs Temp Pulse Resp BP Pulse Ox 06/11/17 16:34 98 H 20 129/74 100 06/11/17 16:22 107 H 28 H 125/69 97 06/11/17 16:00 97.7 F 105 H 27 H 100 06/11/17 15:34 96 H 22 128/79 100 06/11/17 15:00 94 H 21 100 06/11/17 14:34 95 H 25 H 132/71 100 06/11/17 14:00 94 H 25 H 100 06/11/17 13:34 95 H 22 127/76 98 06/11/17 13:30 101 H 22 100 06/11/17 13:20 92 H 24 98 Intake and Output (Last 8hrs): Intake & Output 06/11/17 06/11/17 06/11/17 06:59 14:59 22:59 Intake Total 1623.6 1135.0 252.6 Output Total 480 425 45 Balance 1143.6 710.0 207.6 Weight 224 lb 13.944 oz Intake: Intake, IV Amount 1053.6 1035.0 252.6 EKOS coolant port 280 280 70 EKOS drug port 133.6 100.0 16.6 right groin side port 40 55 16 right hand 600 600 150 Oral 570 100 Output: Urine 480 425 45 Urethral (Horvath) 480 425 45 Stool 0 0 - Medications Active Medications: Active Medications Generic Name Dose Route Start Last Admin Trade Name Freq PRN Reason Stop Dose Admin Famotidine 20 mg 06/11/17 10:00 06/11/17 10:27 Pepcid PO 20 mg BID MADELAINE Administration Sodium Chloride 1,000 mls @ 75 mls/hr 06/10/17 19:30 06/11/17 13:36 Sodium Chloride 0.9% IV Not Given .[id number] MADELAINE Sodium Chloride 1,000 mls @ 35 mls/hr 06/10/17 20:45 06/10/17 22:50 Sodium Chloride 0.9% IV Not Given .Q24H MADELAINE Sodium Chloride 1,000 mls @ 35 mls/hr 06/10/17 20:45 06/10/17 22:50 Sodium Chloride 0.9% IV 35 mls/hr .Q24H MADELAINE Administration Heparin Sodium/Sodium Chloride 25,000 units in 250 mls @ 8 mls/hr 06/11/17 10: 30 06/11/17 10:29 Heparin 40307 Units/250ml 1/2 Normal Saline IV 06/12/17 17:44 8 mls/hr ONCE ONE Administration Oxycodone/Acetaminophen 1 tab 06/10/17 22:39 06/11/17 11:05 Percocet 5/325 Mg Tab PO 06/13/17 22:40 1 tab Q4H PRN Administration Pain, moderate (4-7) Oxycodone/Acetaminophen 2 tab 06/10/17 22:40 06/11/17 06:00 Percocet 5/325 Mg Tab PO 06/13/17 22:41 2 tab Q4H PRN Administration Pain, severe (8-10) - Patient Studies Lab Studies: Lab Studies 06/11/17 06/11/17 06/11/17 Range/Units 16:17 16:17 06:14 WBC 8.2 (4.8-10.8) K/uL RBC 4.20 (3.80-5.20) Mil/uL Hgb 12.1 (11.0-16.0) g/dL Hct 36.0 (34.0-47.0) % MCV 85.8 (81.0-99.0) fL MCH 28.7 (27.0-31.0) pg MCHC 33.5 (33.0-37.0) g/dL RDW 12.6 (11.5-14.5) % Plt Count 191 (130-400) K/uL MPV 8.6 (7.2-11.7) fL Neut % (Auto) (50.0-75.0) % Lymph % (Auto) (20.0-40.0) % Barnes % (Auto) (0.0-10.0) % Eos % (Auto) (0.0-4.0) % Baso % (Auto) (0.0-2.0) % Neut # (1.8-7.0) K/uL Lymph # (1.0-4.3) K/uL Barnes # (0.0-0.8) K/uL Eos # (0.0-0.7) K/uL Baso # (0.0-0.2) K/uL PT 12.0 12.0 (9.7-12.2) SECONDS INR 1.1 1.1 APTT 41 H D 35 H (21-34) SECONDS Sodium (132-148) mmol/L Potassium (3.6-5.2) mmol/L Chloride (98-107) mmol/L Carbon Dioxide (22-30) mmol/L Anion Gap (10-20) BUN (7-17) mg/dL Creatinine (0.7-1.2) MG/DL Est GFR ( Amer) Est GFR (Non-Af Amer) Random Glucose (65-105) mg/dL Calcium (8.6-10.4) mg/dl 06/11/17 06/11/17 Range/Units 06:14 06:14 WBC 9.1 (4.8-10.8) K/uL RBC 4.34 (3.80-5.20) Mil/uL Hgb 12.5 (11.0-16.0) g/dL Hct 37.1 (34.0-47.0) % MCV 85.4 (81.0-99.0) fL MCH 28.9 (27.0-31.0) pg MCHC 33.8 (33.0-37.0) g/dL RDW 12.6 (11.5-14.5) % Plt Count 229 (130-400) K/uL MPV 8.9 (7.2-11.7) fL Neut % (Auto) 78.1 H (50.0-75.0) % Lymph % (Auto) 16.9 L (20.0-40.0) % Barnes % (Auto) 4.2 (0.0-10.0) % Eos % (Auto) 0.4 (0.0-4.0) % Baso % (Auto) 0.4 (0.0-2.0) % Neut # 7.1 H (1.8-7.0) K/uL Lymph # 1.5 (1.0-4.3) K/uL Barnes # 0.4 (0.0-0.8) K/uL Eos # 0.0 (0.0-0.7) K/uL Baso # 0.0 (0.0-0.2) K/uL PT (9.7-12.2) SECONDS INR APTT (21-34) SECONDS Sodium 137 (132-148) mmol/L Potassium 4.2 (3.6-5.2) mmol/L Chloride 107 (98-107) mmol/L Carbon Dioxide 23 (22-30) mmol/L Anion Gap 12 (10-20) BUN 6 L (7-17) mg/dL Creatinine 0.6 L (0.7-1.2) MG/DL Est GFR ( Amer) > 60 Est GFR (Non-Af Amer) > 60 Random Glucose 111 H (65-105) mg/dL Calcium 9.0 (8.6-10.4) mg/dl Laboratory Results - last 24 hr 06/11/17 06/11/17 06/11/17 06:14 06:14 06:14 WBC 9.1 RBC 4.34 Hgb 12.5 Hct 37.1 MCV 85.4 MCH 28.9 MCHC 33.8 RDW 12.6 Plt Count 229 MPV 8.9 Neut % (Auto) 78.1 H Lymph % (Auto) 16.9 L Barnes % (Auto) 4.2 Eos % (Auto) 0.4 Baso % (Auto) 0.4 Neut # 7.1 H Lymph # 1.5 Barnes # 0.4 Eos # 0.0 Baso # 0.0 PT 12.0 INR 1.1 APTT 35 H Sodium 137 Potassium 4.2 Chloride 107 Carbon Dioxide 23 Anion Gap 12 BUN 6 L Creatinine 0.6 L Est GFR ( Amer) > 60 Est GFR (Non-Af Amer) > 60 Random Glucose 111 H Calcium 9.0 06/11/17 06/11/17 16:17 16:17 WBC 8.2 RBC 4.20 Hgb 12.1 Hct 36.0 MCV 85.8 MCH 28.7 MCHC 33.5 RDW 12.6 Plt Count 191 MPV 8.6 Neut % (Auto) Lymph % (Auto) Barnes % (Auto) Eos % (Auto) Baso % (Auto) Neut # Lymph # Barnes # Eos # Baso # PT 12.0 INR 1.1 APTT 41 H D Sodium Potassium Chloride Carbon Dioxide Anion Gap BUN Creatinine Est GFR ( Amer) Est GFR (Non-Af Amer) Random Glucose Calcium Critical Care Progress Note - Nutrition Nutrition: Nutrition Category Date Time Status Liquid Diet [DIET] Diets 06/10/17 Dinner Active Attending/Attestation - Attestation I have personally seen and examined this patient.: Yes I have fully participated in the care of the patient.: Yes I have reviewed all pertinent clinical information: Yes Notes (Text): 06/11/17 17:19 Patient seen and examined in the intensive care unit. Case discussed with house staff in the morning rounds. Patient is status post catheter directed thrombolysis by cardiology On heparin drip oxygen saturation is 100% Continue ICU monitoring Vascular consult for right leg DVT Seen by hematology
[2017-06-11 16:22] LABS: MEAN CELL VOLUME 85.8 fL (81.0-99.0); MEAN CORPUSCULAR HEMOGLOBIN 28.7 pg (27.0-31.0); MEAN CORPUSCULAR HGB CONC 33.5 g/dL (33.0-37.0); MEAN PLATELET VOLUME 8.6 fL (7.2-11.7); RED CELL DISTRIBUTION WIDTH 12.6 % (11.5-14.5); WHITE BLOOD COUNT 8.2 K/uL (4.8-10.8)
[2017-06-11 16:28] LABS: INR 1.1
[2017-06-11] MEDS ORDERED: Lidocaine 2% Inj (20ml) ONE (17:09)
[2017-06-11] MEDS ORDERED: Midazolam 2 MG/2 ML VIAL IVP ONE (17:15)
[2017-06-11] MEDS ORDERED: Midazolam 2 MG/2 ML VIAL ONE (17:15)
[2017-06-11] MEDS ORDERED: Heparin25000 units/250ml 1/2NS 25,000 UNITS/250 ML BAG IV PRN (18:00)
[2017-06-11] MEDS: Heparin25000 units/250ml 1/2NS 25,000 UNITS/250 ML BAG IV PRN (21:33)
--- NOTE | 2017-06-12 03:04 | CON ---
REASON FOR CONSULTATION: Extensive DVT and pulmonary embolism. HISTORY OF PRESENT ILLNESS: A 32-year-old female essentially healthy other than having some disk problem at L4-L5. She is on contraceptive pill, started having some swelling of the right lower extremities and shortness of breath with face discomfort. Eventually, came to the emergency room, found to have DVT of the right lower extremity and also extensive pulmonary embolism, saddle embolism. The patient already was evaluated, has a thrombolytic therapy and responded very well. Already on anticoagulation with heparin. I am called on consult for evaluation. PAST MEDICAL HISTORY: As per history of present illness. MEDICATIONS: The patient is on control pill. ALLERGIES: TO NAPROXEN. FAMILY HISTORY: Noncontributory. SOCIAL HISTORY: Nonsmoker. No ethanol abuse. No drug abuse. 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 REVIEW OF SYSTEMS: Denies any headaches, dizziness, or blackout. Had some face discomfort, but no fever or chills. No nausea, vomiting, melena, hemoptysis, or hematemesis. No dysuria or hematuria. PHYSICAL EXAMINATION: GENERAL: The patient is awake, alert and oriented, quiet, pleasant, not in acute distress at present. VITAL SIGNS: Pulse 105, respiration is 25, blood pressure 125/69, afebrile. HEENT: Head: Normocephalic and atraumatic. Eyes: Conjunctivae pink. Sclerae white. Pupils reacting to light. Ear, nose, and throat within normal limits. LUNGS: Bilaterally good air entry. Clear to auscultation and percussion. HEART: S1 and S2 regular. No gallop. No murmur. ABDOMEN: Soft, nondistended, and nontender. No hepatosplenomegaly. CENTRAL NERVOUS SYSTEM: No gross, motor or sensory deficits. LYMPH NODE: No cervical, axillary or inguinal lymph nodes palpable. LABORATORY DATA: WBC 8,200, hemoglobin 12.1, hematocrit 36 and platelet count 191,000. PTT is 41. SMA-18 is essentially normal. IMPRESSION: Deep venous thrombosis, right lower extremities and pulmonary embolism, extensive. PLAN: The patient is already on the thrombolytic therapy which will be discontinued. The patient will be placed on the therapeutic heparin. Discussed at length with the patient, sister and the daughter about the possibility of the deep venous thrombosis, most likely it is the contraceptive pills. Once the patient is recovered, the patient will need at least anticoagulation for 6 months. Before stopping the anticoagulation, the patient will have CAT scan and the Doppler study to make sure it has resolved. Once it is resolved, we will discontinue the anticoagulation and do the workup for the protein C, protein S, antithrombin III, prothrombin gene mutation, factor V Leiden and lupus anticoagulant. The patient has understood and agreed with that. Discussed with Dr. Aparicio, discussed with Dr. Smart. Thank you for letting me participate in the care of this patient. Eran Martinez MD cc:Victor M Grewal MD
[2017-06-12] MEDS: Sodium Chloride 0.9% 1,000 ML IV SCH ×2 (03:52→17:42)
[2017-06-12 04:19] LABS: BASO % 0.4 % (0.0-2.0); EOS # 0.2 K/uL (0.0-0.7); EOS % 2.6 % (0.0-4.0); HEMATOCRIT 34.4 % (34.0-47.0); LYMPH # 2.6 K/uL (1.0-4.3); LYMPH % 28.2 % (20.0-40.0); MEAN CELL VOLUME 84.9 fL (81.0-99.0); MEAN CORPUSCULAR HEMOGLOBIN 28.8 pg (27.0-31.0); MEAN CORPUSCULAR HGB CONC 33.9 g/dL (33.0-37.0); MEAN PLATELET VOLUME 8.3 fL (7.2-11.7); MONO # 0.5 K/uL (0.0-0.8); MONO % 5.2 % (0.0-10.0); RED CELL DISTRIBUTION WIDTH 12.6 % (11.5-14.5)
[2017-06-12 04:37] LABS: ALKALINE PHOSPHATASE 59 U/L (38-126); ALT/SGPT 22 U/L (9-52); AST/SGOT 20 U/L (14-36); BILIRUBIN,TOTAL 0.6 mg/dL (0.2-1.3); BLOOD UREA NITROGEN 4 mg/dL (7-17); CALCIUM 8.7 mg/dl (8.6-10.4); CARBON DIOXIDE 22 mmol/L (22-30); CHLORIDE 105 mmol/L (98-107); GFR AFRICAN-AMERICAN > 60; GLUCOSE,RANDOM 96 mg/dL (65-105); MAGNESIUM 1.8 mg/dL (1.6-2.3); PHOSPHOROUS 2.9 mg/dL (2.5-4.5); POTASSIUM 3.8 mmol/L (3.6-5.2); SODIUM 138 mmol/L (132-148); TOTAL PROTEIN 6.4 g/dL (6.3-8.3)
--- NOTE | 2017-06-12 07:59 | CP.PCM.PN ---
Subjective - Date & Time of Evaluation Date of Evaluation: 06/12/17 Time of Evaluation: 07:54 - Subjective Subjective: Vasc Sx: Dr Jeong PT S&E. NAEO. Resting comfortably. Remains tachycardic 110-120s. Minimal chest pain. Objective - Vital Signs/Intake and Output Vital Signs (last 24 hours): Temp Pulse Resp BP Pulse Ox 98.8 F 112 H 20 128/75 98 06/12/17 04:00 06/12/17 06:00 06/12/17 06:00 06/12/17 05:34 06/12/17 06:00 Intake and Output: 06/12/17 06/12/17 06:59 18:59 Intake Total 1359.6 Output Total 450 Balance 909.6 - Medications Medications: Current Medications Famotidine (Pepcid) 20 mg PO BID [facility] Last Admin: 06/11/17 18:39 Dose: 20 mg Sodium Chloride (Sodium Chloride 0.9%) 1,000 mls @ 75 mls/hr IV .[id number] [facility] Last Admin: 06/12/17 03:52 Dose: 75 mls/hr Heparin Sodium/Sodium Chloride (Heparin 46740 Units/250ml 1/2 Normal Saline) 25 ,000 units in 250 mls @ 18.36 mls/hr IV .[id number] PRN; Protocol; 18 UNITS/KG/HR PRN Reason: PROTOCOL Last Titration: 06/12/17 06:15 Dose: 15 units/kg/hr, 15.3 mls/hr Oxycodone/Acetaminophen (Percocet 5/325 Mg Tab) 1 tab PO Q4H PRN PRN Reason: Pain, moderate (4-7) Stop: 06/13/17 22:40 Last Admin: 06/11/17 11:05 Dose: 1 tab Oxycodone/Acetaminophen (Percocet 5/325 Mg Tab) 2 tab PO Q4H PRN PRN Reason: Pain, severe (8-10) Stop: 06/13/17 22:41 Last Admin: 06/11/17 21:25 Dose: 2 tab - Labs Labs: 06/12/17 04:16 06/12/17 04:16 PT 12.0 SECONDS (9.7-12.2) 06/11/17 16:17 INR 1.1 06/11/17 16:17 APTT 236 SECONDS (21-34) H* D 06/12/17 04:16 - Constitutional Appears: Non-toxic, No Acute Distress - Respiratory Exam Respiratory Exam: absent: Accessory Muscle Use, Respiratory Distress - Cardiovascular Exam Cardiovascular Exam: Tachycardia, REGULAR RHYTHM Assessment and Plan - Assessment and Plan (Free Text) Assessment: 32F with R DVT and Saddle embolus Plan: saddle embolus currently being managed by Dr Aparicio no immediate vascular surgery planned as pt recently had 12 Fr sheath in right groin Dr Aparicio may place IVC filter during next intervention possible endovascular intervention in future for angiojet of right femoral dvt will follow peripherally until then d/w Dr Adriano Franklin, PGY3
--- NOTE | 2017-06-12 08:55 | CP.CCUPN ---
<EsJones Xiang - Last Filed: 06/12/17 18:22> CCU Subjective - Physician Review Subjective (Free Text): Patient seen and examined at bedside with mother present. Patient not in acute distress, has no complaints. Denies chest pain, shortness of breath, cough, leg pain, abdominal pain, diarrhea, constipation. 06/12/17 18:22 CCU Objective - Vital Signs / Intake & Output Vital Signs (Last 4 hours): Vital Signs Temp Pulse Resp BP Pulse Ox 06/12/17 08:00 99.2 F 100 06/12/17 06:34 116/64 06/12/17 06:00 112 H 20 98 06/12/17 05:34 128/75 Intake and Output (Last 8hrs): Intake & Output 06/11/17 06/12/17 06/12/17 22:59 06:59 14:59 Intake Total 924.3 897.2 183.7 Output Total 350 280 155 Balance 574.3 617.2 28.7 Weight 224 lb 13.944 oz Intake: IV 0 Intake, IV Amount 804.3 747.2 183.7 EKOS coolant port 105 EKOS drug port 24.9 Left hand 42.4 147.2 33.7 right groin side port 32 right hand 600 600 150 Oral 120 150 0 Output: Urine 350 280 155 Urethral (Horvath) 350 280 155 Other: # Bowel Movements 0 0 0 - Physical Exam Head: Positive for: Atraumatic Pupils: Positive for: PERRL Extroacular Muscles: Positive for: EOMI Mouth: Positive for: Moist Mucous Membranes Neck: Positive for: Normal Range of Motion Respiratory/Chest: Positive for: Clear to Auscultation. Negative for: Wheezes Cardiovascular: Positive for: Regular Rate and Rhythm, Normal S1, S2. Negative for: Murmurs Abdomen: Positive for: Normal Bowel Sounds. Negative for: Tenderness Upper Extremity: Positive for: Normal Inspection. Negative for: Edema Lower Extremity: Positive for: Normal Inspection. Negative for: Edema Neurological: Positive for: CN II-XII Intact, Speech Normal Skin: Positive for: Warm, Dry, Normal Color Psychiatric: Positive for: Alert, Oriented x 3, Normal Insight, Normal Concentration - Medications Active Medications: Active Medications Generic Name Dose Route Start Last Admin Trade Name Freq PRN Reason Stop Dose Admin Famotidine 20 mg 06/11/17 10:00 06/11/17 18:39 Pepcid PO 20 mg BID MADELAINE Administration Sodium Chloride 1,000 mls @ 75 mls/hr 06/10/17 19:30 06/12/17 03:52 Sodium Chloride 0.9% IV 75 mls/hr .[id number] MADELAINE Administration Heparin Sodium/Sodium Chloride 25,000 units in 250 mls @ 18.36 mls/hr 21:15 06/12/17 06:15 Heparin 65728 Units/250ml 1/2 Normal Saline IV 15 units/kg/hr .[id number] PRN 15.3 mls/hr PROTOCOL Titration Protocol 18 UNITS/KG/HR Oxycodone/Acetaminophen 1 tab 06/10/17 22:39 06/11/17 11:05 Percocet 5/325 Mg Tab PO 06/13/17 22:40 1 tab Q4H PRN Administration Pain, moderate (4-7) Oxycodone/Acetaminophen 2 tab 06/10/17 22:40 06/11/17 21:25 Percocet 5/325 Mg Tab PO 06/13/17 22:41 2 tab Q4H PRN Administration Pain, severe (8-10) - Patient Studies Lab Studies: Microbiology Studies 06/10/17 12:27 MRSA Culture (Admit) - Final Naris MRSA NOT DETECTED Lab Studies 06/12/17 06/12/17 06/12/17 Range/Units 04:16 04:16 04:16 WBC 9.0 (4.8-10.8) K/uL RBC 4.05 (3.80-5.20) Mil/uL Hgb 11.7 (11.0-16.0) g/dL Hct 34.4 (34.0-47.0) % MCV 84.9 (81.0-99.0) fL MCH 28.8 (27.0-31.0) pg MCHC 33.9 (33.0-37.0) g/dL RDW 12.6 (11.5-14.5) % Plt Count 184 (130-400) K/uL MPV 8.3 (7.2-11.7) fL Neut % (Auto) 63.6 (50.0-75.0) % Lymph % (Auto) 28.2 (20.0-40.0) % Upton % (Auto) 5.2 (0.0-10.0) % Eos % (Auto) 2.6 (0.0-4.0) % Baso % (Auto) 0.4 (0.0-2.0) % Neut # 5.7 (1.8-7.0) K/uL Lymph # 2.6 (1.0-4.3) K/uL Upton # 0.5 (0.0-0.8) K/uL Eos # 0.2 (0.0-0.7) K/uL Baso # 0.0 (0.0-0.2) K/uL PT (9.7-12.2) SECONDS INR APTT 236 H* D (21-34) SECONDS Sodium 138 (132-148) mmol/L Potassium 3.8 (3.6-5.2) mmol/L Chloride 105 (98-107) mmol/L Carbon Dioxide 22 (22-30) mmol/L Anion Gap 15 (10-20) BUN 4 L (7-17) mg/dL Creatinine 0.7 (0.7-1.2) MG/DL Est GFR ( Amer) > 60 Est GFR (Non-Af Amer) > 60 Random Glucose 96 (65-105) mg/dL Calcium 8.7 (8.6-10.4) mg/dl Phosphorus 2.9 (2.5-4.5) mg/dL Magnesium 1.8 (1.6-2.3) mg/dL Total Bilirubin 0.6 (0.2-1.3) mg/dL AST 20 (14-36) U/L ALT 22 (9-52) U/L Alkaline Phosphatase 59 (38-126) U/L Total Protein 6.4 (6.3-8.3) g/dL Albumin 3.2 L (3.5-5.0) g/dL Globulin 3.2 (2.2-3.9) gm/dL Albumin/Globulin Ratio 1.0 (1.0-2.1) 06/11/17 06/11/17 06/11/17 Range/Units 19:21 16:17 16:17 WBC 8.2 (4.8-10.8) K/uL RBC 4.20 (3.80-5.20) Mil/uL Hgb 12.1 (11.0-16.0) g/dL Hct 36.0 (34.0-47.0) % MCV 85.8 (81.0-99.0) fL MCH 28.7 (27.0-31.0) pg MCHC 33.5 (33.0-37.0) g/dL RDW 12.6 (11.5-14.5) % Plt Count 191 (130-400) K/uL MPV 8.6 (7.2-11.7) fL Neut % (Auto) (50.0-75.0) % Lymph % (Auto) (20.0-40.0) % Upton % (Auto) (0.0-10.0) % Eos % (Auto) (0.0-4.0) % Baso % (Auto) (0.0-2.0) % Neut # (1.8-7.0) K/uL Lymph # (1.0-4.3) K/uL Upton # (0.0-0.8) K/uL Eos # (0.0-0.7) K/uL Baso # (0.0-0.2) K/uL PT 12.0 (9.7-12.2) SECONDS INR 1.1 APTT 41 H 41 H D (21-34) SECONDS Sodium (132-148) mmol/L Potassium (3.6-5.2) mmol/L Chloride (98-107) mmol/L Carbon Dioxide (22-30) mmol/L Anion Gap (10-20) BUN (7-17) mg/dL Creatinine (0.7-1.2) MG/DL Est GFR ( Amer) Est GFR (Non-Af Amer) Random Glucose (65-105) mg/dL Calcium (8.6-10.4) mg/dl Phosphorus (2.5-4.5) mg/dL Magnesium (1.6-2.3) mg/dL Total Bilirubin (0.2-1.3) mg/dL AST (14-36) U/L ALT (9-52) U/L Alkaline Phosphatase (38-126) U/L Total Protein (6.3-8.3) g/dL Albumin (3.5-5.0) g/dL Globulin (2.2-3.9) gm/dL Albumin/Globulin Ratio (1.0-2.1) Laboratory Results - last 24 hr 06/11/17 06/11/17 06/11/17 16:17 16:17 19:21 WBC 8.2 RBC 4.20 Hgb 12.1 Hct 36.0 MCV 85.8 MCH 28.7 MCHC 33.5 RDW 12.6 Plt Count 191 MPV 8.6 Neut % (Auto) Lymph % (Auto) Upton % (Auto) Eos % (Auto) Baso % (Auto) Neut # Lymph # Upton # Eos # Baso # PT 12.0 INR 1.1 APTT 41 H D 41 H Sodium Potassium Chloride Carbon Dioxide Anion Gap BUN Creatinine Est GFR ( Amer) Est GFR (Non-Af Amer) Random Glucose Calcium Phosphorus Magnesium Total Bilirubin AST ALT Alkaline Phosphatase Total Protein Albumin Globulin Albumin/Globulin Ratio 06/12/17 06/12/17 06/12/17 04:16 04:16 04:16 WBC 9.0 RBC 4.05 Hgb 11.7 Hct 34.4 MCV 84.9 MCH 28.8 MCHC 33.9 RDW 12.6 Plt Count 184 MPV 8.3 Neut % (Auto) 63.6 Lymph % (Auto) 28.2 Upton % (Auto) 5.2 Eos % (Auto) 2.6 Baso % (Auto) 0.4 Neut # 5.7 Lymph # 2.6 Upton # 0.5 Eos # 0.2 Baso # 0.0 PT INR APTT 236 H* D Sodium 138 Potassium 3.8 Chloride 105 Carbon Dioxide 22 Anion Gap 15 BUN 4 L Creatinine 0.7 Est GFR ( Amer) > 60 Est GFR (Non-Af Amer) > 60 Random Glucose 96 Calcium 8.7 Phosphorus 2.9 Magnesium 1.8 Total Bilirubin 0.6 AST 20 ALT 22 Alkaline Phosphatase 59 Total Protein 6.4 Albumin 3.2 L Globulin 3.2 Albumin/Globulin Ratio 1.0 Review of Systems - Constitutional Constitutional: absent: Fever, Chills, Sweats - Cardiovascular Cardiovascular: UNREMARKABLE - Respiratory Respiratory: UNREMARKABLE - Gastrointestinal Gastrointestinal: UNREMARKABLE - Genitourinary Genitourinary: UNREMARKABLE - Musculoskeletal Musculoskeletal: UNREMARKABLE - Neurological Neurological: UNREMARKABLE - Hematologic/Lymphatic Hematologic: UNREMARKABLE Critical Care Progress Note - Nutrition Nutrition: Nutrition Category Date Time Status Liquid Diet [DIET] Diets 06/10/17 Dinner Active Assessment/Plan - Assessment and Plan (Free Text) Assessment: 32 year old F w sub-massive saddle PE s/p EKOS catheter insertion of left pulmonary artery Today 06/12/17: repeat echo performed today, still pending official report. Dr Aparicio (cardiology) and Dr Jeong (vascular) to determine intervention regarding R DVT and saddle embolus. Per surgical instrument repair specialist, Dr Aparicio may place IVC filter during next planned intervention. Pulmonary: sub-massive saddle PE; - s/p EKOS of left pulmonary artery, right pulm artery difficult to cannulate - EKOS at a later date, to be determined by Dr Aparicio - CT angio chest shows large central saddle like pulmonary arterial embolism - ECHO shows right heart strain, RV dilation, decrease in RV systolic function - heparin 800 units/hr - tPA 0.5mg/hr - liquid diet - stop OCP control - cardiology consult, Dr Aparicio on board Heme: DVT of RLE - venous duplex scan abnormal for DVT in RLE - Vascular surgery consult, Dr Jeong on board, thrombectomy planned - heme consult, Dr Dameon Martinez on board - H/H stable Prophylactic measure: -Diet: npo except meds -DVT: therapeutic heparin -GI: pepcid 20mg po daily Rest of organ systems: no active issues <Jose Martin Magaña - Last Filed: 06/12/17 18:57> CCU Objective - Vital Signs / Intake & Output Vital Signs (Last 4 hours): Vital Signs Temp Pulse Resp BP Pulse Ox 06/12/17 18:34 114 H 26 H 140/78 95 06/12/17 18:00 115 H 22 86 L 06/12/17 17:34 105 H 24 140/85 95 06/12/17 17:00 109 H 28 H 96 06/12/17 16:34 105 H 26 H 132/80 95 06/12/17 16:00 99.6 F 113 H 31 H 99 06/12/17 15:34 107 H 25 H 134/78 100 06/12/17 15:00 109 H 26 H 100 Intake and Output (Last 8hrs): Intake & Output 09/07/17 09/07/17 09/07/17 06:59 14:59 22:59 Intake Total 897.2 1067.1 511.6 Output Total 280 1205 850 Balance 617.2 -137.9 -338.4 Weight 224 lb 13.944 oz Intake: IV 0 0 250 Intake, IV Amount 747.2 707.1 261.6 Left hand 147.2 107.1 36.6 right hand 600 600 225 Oral 150 360 Output: Urine 280 1205 850 Urethral ([place]) 280 1205 850 Other: # Bowel Movements 0 0 - Medications Active Medications: Active Medications Generic Name Dose Route Start Last Admin Trade Name Freq PRN Reason Stop Dose Admin Famotidine 20 mg 06/11/17 10:00 06/12/17 17:40 Pepcid PO 20 mg BID MADELAINE Administration Sodium Chloride 1,000 mls @ 75 mls/hr 06/10/17 19:30 06/12/17 17:42 Sodium Chloride 0.9% IV 75 mls/hr .[id number] MADELAINE Administration Heparin Sodium/Sodium Chloride 25,000 units in 250 mls @ 18.36 mls/hr 21:15 06/12/17 15:29 Heparin 15764 Units/250ml 1/2 Normal Saline IV 12 units/kg/hr .[id number] PRN 12.24 mls/hr PROTOCOL Administration Protocol 18 UNITS/KG/HR Oxycodone/Acetaminophen 1 tab 06/10/17 22:39 06/11/17 11:05 Percocet 5/325 Mg Tab PO 06/13/17 22:40 1 tab Q4H PRN Administration Pain, moderate (4-7) Oxycodone/Acetaminophen 2 tab 06/10/17 22:40 06/11/17 21:25 Percocet 5/325 Mg Tab PO 06/13/17 22:41 2 tab Q4H PRN Administration Pain, severe (8-10) - Patient Studies Lab Studies: Microbiology Studies 06/10/17 12:27 MRSA Culture (Admit) - Final Naris MRSA NOT DETECTED Lab Studies 06/12/17 06/12/17 06/12/17 Range/Units 12:29 04:16 04:16 WBC (4.8-10.8) K/uL RBC (3.80-5.20) Mil/uL Hgb (11.0-16.0) g/dL Hct (34.0-47.0) % MCV (81.0-99.0) fL MCH (27.0-31.0) pg MCHC (33.0-37.0) g/dL RDW (11.5-14.5) % Plt Count (130-400) K/uL MPV (7.2-11.7) fL Neut % (Auto) (50.0-75.0) % Lymph % (Auto) (20.0-40.0) % Upton % (Auto) (0.0-10.0) % Eos % (Auto) (0.0-4.0) % Baso % (Auto) (0.0-2.0) % Neut # (1.8-7.0) K/uL Lymph # (1.0-4.3) K/uL Upton # (0.0-0.8) K/uL Eos # (0.0-0.7) K/uL Baso # (0.0-0.2) K/uL APTT 120 H* D 236 H* D (21-34) SECONDS Sodium 138 (132-148) mmol/L Potassium 3.8 (3.6-5.2) mmol/L Chloride 105 (98-107) mmol/L Carbon Dioxide 22 (22-30) mmol/L Anion Gap 15 (10-20) BUN 4 L (7-17) mg/dL Creatinine 0.7 (0.7-1.2) MG/DL Est GFR ( Amer) > 60 Est GFR (Non-Af Amer) > 60 Random Glucose 96 (65-105) mg/dL Calcium 8.7 (8.6-10.4) mg/dl Phosphorus 2.9 (2.5-4.5) mg/dL Magnesium 1.8 (1.6-2.3) mg/dL Total Bilirubin 0.6 (0.2-1.3) mg/dL AST 20 (14-36) U/L ALT 22 (9-52) U/L Alkaline Phosphatase 59 (38-126) U/L Total Protein 6.4 (6.3-8.3) g/dL Albumin 3.2 L (3.5-5.0) g/dL Globulin 3.2 (2.2-3.9) gm/dL Albumin/Globulin Ratio 1.0 (1.0-2.1) 06/12/17 06/11/17 Range/Units 04:16 19:21 WBC 9.0 (4.8-10.8) K/uL RBC 4.05 (3.80-5.20) Mil/uL Hgb 11.7 (11.0-16.0) g/dL Hct 34.4 (34.0-47.0) % MCV 84.9 (81.0-99.0) fL MCH 28.8 (27.0-31.0) pg MCHC 33.9 (33.0-37.0) g/dL RDW 12.6 (11.5-14.5) % Plt Count 184 (130-400) K/uL MPV 8.3 (7.2-11.7) fL Neut % (Auto) 63.6 (50.0-75.0) % Lymph % (Auto) 28.2 (20.0-40.0) % Upton % (Auto) 5.2 (0.0-10.0) % Eos % (Auto) 2.6 (0.0-4.0) % Baso % (Auto) 0.4 (0.0-2.0) % Neut # 5.7 (1.8-7.0) K/uL Lymph # 2.6 (1.0-4.3) K/uL Upton # 0.5 (0.0-0.8) K/uL Eos # 0.2 (0.0-0.7) K/uL Baso # 0.0 (0.0-0.2) K/uL APTT 41 H (21-34) SECONDS Sodium (132-148) mmol/L Potassium (3.6-5.2) mmol/L Chloride (98-107) mmol/L Carbon Dioxide (22-30) mmol/L Anion Gap (10-20) BUN (7-17) mg/dL Creatinine (0.7-1.2) MG/DL Est GFR ( Amer) Est GFR (Non-Af Amer) Random Glucose (65-105) mg/dL Calcium (8.6-10.4) mg/dl Phosphorus (2.5-4.5) mg/dL Magnesium (1.6-2.3) mg/dL Total Bilirubin (0.2-1.3) mg/dL AST (14-36) U/L ALT (9-52) U/L Alkaline Phosphatase (38-126) U/L Total Protein (6.3-8.3) g/dL Albumin (3.5-5.0) g/dL Globulin (2.2-3.9) gm/dL Albumin/Globulin Ratio (1.0-2.1) Laboratory Results - last 24 hr 06/11/17 06/12/17 06/12/17 19:21 04:16 04:16 WBC 9.0 RBC 4.05 Hgb 11.7 Hct 34.4 MCV 84.9 MCH 28.8 MCHC 33.9 RDW 12.6 Plt Count 184 MPV 8.3 Neut % (Auto) 63.6 Lymph % (Auto) 28.2 Upton % (Auto) 5.2 Eos % (Auto) 2.6 Baso % (Auto) 0.4 Neut # 5.7 Lymph # 2.6 Upton # 0.5 Eos # 0.2 Baso # 0.0 APTT 41 H Sodium 138 Potassium 3.8 Chloride 105 Carbon Dioxide 22 Anion Gap 15 BUN 4 L Creatinine 0.7 Est GFR ( Amer) > 60 Est GFR (Non-Af Amer) > 60 Random Glucose 96 Calcium 8.7 Phosphorus 2.9 Magnesium 1.8 Total Bilirubin 0.6 AST 20 ALT 22 Alkaline Phosphatase 59 Total Protein 6.4 Albumin 3.2 L Globulin 3.2 Albumin/Globulin Ratio 1.0 06/12/17 06/12/17 04:16 12:29 WBC RBC Hgb Hct MCV MCH MCHC RDW Plt Count MPV Neut % (Auto) Lymph % (Auto) Upton % (Auto) Eos % (Auto) Baso % (Auto) Neut # Lymph # Upton # Eos # Baso # APTT 236 H* D 120 H* D Sodium Potassium Chloride Carbon Dioxide Anion Gap BUN Creatinine Est GFR ( Amer) Est GFR (Non-Af Amer) Random Glucose Calcium Phosphorus Magnesium Total Bilirubin AST ALT Alkaline Phosphatase Total Protein Albumin Globulin Albumin/Globulin Ratio Critical Care Progress Note - Nutrition Nutrition: Nutrition Category Date Time Status Heart Healthy Diet [DIET] Diets 06/12/17 Dinner Active Attending/Attestation - Attestation I have personally seen and examined this patient.: Yes I have fully participated in the care of the patient.: Yes I have reviewed all pertinent clinical information: Yes Notes (Text): 06/12/17 18:57 Today: June The Patient was seen and examined at the bedside, Medical records reviewed, and management issues were discussed and formulated with the house staff. I have reviewed all the relevant clinical, laboratory, hemodynamic, radiographic data and medications Events reviewed Pain issues, skin care, head of the bed elevation, glycemic control were addressed. I concur with resident's assessment and plan of care as transcribed in Dr. Suggs note.
--- NOTE | 2017-06-12 10:42 | VASCLAB ---
PROCEDURE: Lower Extremity Venous Duplex Exam. HISTORY: Leg swelling PRIORS: None. TECHNIQUE: Bilateral common femoral, femoral, popliteal and posterior tibial, peroneal and great saphenous veins were evaluated. Flow was assessed with color Doppler, compressibility, assessment of phasic flow and augmentation response. Report prepared by ZACH Redmond, RVT FINDINGS: RIGHT: 1. Common Femoral Vein: 1.1. Compressibility - Fully compressible: Thrombus - None : Flow - Phasic: Augmentation -Normal: Reflux - None. 2. Femoral Vein: 2.1. Compressibility - Partial: Thrombus - Acute : Flow - Absent : Augmentation -None: Reflux - None. 3. Popliteal Vein: 3.1. Compressibility - Partial: Thrombus - Acute : Flow - Absent : Augmentation -None: Reflux - None. 4. Posterior Tibial Vein: 4.1. Compressibility - Partial: Thrombus - Acute: Flow - Absent : Augmentation -None: Reflux - None. 5. Peroneal Vein: 5.1. Compressibility - Partial: Thrombus - Acute: Flow - Absent : Augmentation -None: Reflux - None. 6. Great Saphenous Vein: 6.1. Compressibility - Fully compressible: Thrombus - None: Flow - Phasic: Augmentation - Normal: Reflux - None. LEFT: 1. Common Femoral Vein: 1.1. Compressibility - Fully compressible: Thrombus - None: Flow - Phasic: Augmentation -Normal: Reflux - None. 2. Femoral Vein: 2.1. Compressibility - Fully compressible: Thrombus - None: Flow - Phasic: Augmentation -Normal: Reflux - None. 3. Popliteal Vein: 3.1. Compressibility - Fully compressible: Thrombus - None : Flow - Phasic: Augmentation -Normal: Reflux - None. 4. Posterior Tibial Vein: 4.1. Compressibility - Fully compressible: Thrombus - None: Flow - Phasic: Augmentation -Normal: Reflux - None. 5. Peroneal Vein: 5.1. Compressibility - Fully compressible: Thrombus - None: Flow - Phasic: Augmentation -Normal: Reflux - None. 6. Great Saphenous Vein: 6.1. Compressibility - Fully compressible: Thrombus - None: Flow - Phasic: Augmentation - Normal: Reflux - None. OTHER FINDINGS: Dr. Aparicio notified about the findings. IMPRESSION: Right: Acute thrombosis of the right femoral, popliteal, posterior tibial and peroneal veins with severe reduction of the venous return. Left: No evidence of deep or superficial vein thrombosis of the left lower extremity. Normal valve function noted of the left side.
[2017-06-12] MEDS: Heparin25000 units/250ml 1/2NS 25,000 UNITS/250 ML BAG IV PRN (15:29)
--- NOTE | 2017-06-12 18:31 | CARD ---
APPROVED REPORT EKG Measurement Heart [id number] <Conclusion> Sinus tachycardia Possible Left atrial enlargement Borderline ECG
[2017-06-12] MEDS ORDERED: Heparin25000 units/250ml 1/2NS 25,000 UNITS/250 ML BAG IV PRN (21:15)
--- NOTE | 2017-06-12 22:15 | CARD ---
APPROVED REPORT EXAM: Two-dimensional and M-mode echocardiogram with Doppler and color Doppler. Other Information Quality : GoodRhythm : NSR INDICATION Pulmonary Hypertention Mitral Valve E/A ratio0.0 TDI E/Lateral E'0.0E/Medial E'0.0 Tricuspid Valve TR Peak [id number] Peak [id number] <Conclusion> Left ventricle: thickness: normal;flattened septum size: normal; overall ejection fraction: 65%: diastolic filling pressures: normal Mitral valve: annulus: normal: leaflets: normal: excursion: normal; no significant trans-mitral gradient: significant incompetence: left atrium: normal Aortic valve: leaflets: normal: excursion: normal; no significant trans-aortic gradient: No significant incompetence: aortic root: normal Right sided Structures: Mobile linear echo denisty suggestive of thrombus; doubt chiari malformation; Pulmonary valve: normal; no significant incompetence; Tricuspid valve: normal;mild to moderate incompetence: Intra-cardiac hemodynamics: pulmonary systolic pressures: 75 mmHg; central venous pressures: normal No pericardial effusion
[2017-06-13] MEDS: Sodium Chloride 0.9% 1,000 ML IV SCH ×2 (01:50→06:12)
[2017-06-13 06:30] LABS: BASO % 0.3 % (0.0-2.0); EOS # 0.4 K/uL (0.0-0.7); EOS % 4.5 % (0.0-4.0); HEMATOCRIT 33.8 % (34.0-47.0); LYMPH # 2.5 K/uL (1.0-4.3); LYMPH % 30.3 % (20.0-40.0); MEAN CELL VOLUME 84.9 fL (81.0-99.0); MEAN CORPUSCULAR HEMOGLOBIN 29.1 pg (27.0-31.0); MEAN CORPUSCULAR HGB CONC 34.3 g/dL (33.0-37.0); MEAN PLATELET VOLUME 8.5 fL (7.2-11.7); MONO # 0.4 K/uL (0.0-0.8); MONO % 4.2 % (0.0-10.0); NRBC % 0.1 % (0.0-2.0); RED CELL DISTRIBUTION WIDTH 12.7 % (11.5-14.5); WHITE BLOOD COUNT 8.4 K/uL (4.8-10.8)
[2017-06-13 06:45] LABS: ALB/GLOB RATIO 1.2 (1.0-2.1); ALKALINE PHOSPHATASE 54 U/L (38-126); ALT/SGPT 26 U/L (9-52); AST/SGOT 17 U/L (14-36); BILIRUBIN,TOTAL 0.4 mg/dL (0.2-1.3); BLOOD UREA NITROGEN 5 mg/dL (7-17); CARBON DIOXIDE 22 mmol/L (22-30); CHLORIDE 106 mmol/L (98-107); GFR AFRICAN-AMERICAN > 60; GLUCOSE,RANDOM 82 mg/dL (65-105); MAGNESIUM 1.9 mg/dL (1.6-2.3); PHOSPHOROUS 3.3 mg/dL (2.5-4.5); POTASSIUM 3.8 mmol/L (3.6-5.2); SODIUM 138 mmol/L (132-148); TOTAL PROTEIN 6.3 g/dL (6.3-8.3)
[2017-06-13] MEDS ORDERED: Iodixanol 320 MG/ML 100 ML BOTTLE IV ONE (10:02)
--- NOTE | 2017-06-13 11:24 | CT ---
PROCEDURE: CT Chest with contrast (Pulmonary Angiogram) HISTORY: saddle pulmonary embolism s/p ekos COMPARISON: 06/10/2017 TECHNIQUE: Axial computed tomography images were obtained of the chest in the pulmonary arterial phase of enhancement. Coronal and sagittal reformatted images were created and reviewed. Intravenous contrast dose: 100 mL Visipaque 320 Radiation dose: Total exam DLP = 530.59 mGy-cm. This CT exam was performed using one or more of the following dose reduction techniques: Automated exposure control, adjustment of the mA and/or kV according to patient size, and/or use of iterative reconstruction technique. FINDINGS: PULMONARY ARTERIES: There is extensive thrombus in the right pulmonary artery extending into right lower lobe segmental branches and right upper lobe segmental branches. The right middle lobe pulmonary artery appears uninvolved. Thrombus in the right pulmonary artery does not extend to the pulmonary saddle. There is thin linear filling defect seen in the left lower lobe pulmonary artery segmental branch (series 2, image 111 through 116). This appearance is suggestive of chronic thrombus. Previously, there was extensive thrombus in the left lower lobe pulmonary artery and segmental branches. No other left-sided pulmonary arterial filling defect is identified. There is filling defect seen in the right superior and inferior pulmonary veins. This protrudes into the left atrium. No left-sided pulmonary venous thrombosis is evident. AORTA: No acute findings. No thoracic aortic aneurysm. LUNGS: Bilateral minimal lower lobe compressive atelectasis secondary to small pleural effusions. Minimal linear scar/ atelectasis apical posterior left upper lobe. No pulmonary infiltrate. PLEURAL SPACES: Very small bilateral pleural effusion. No pneumothorax. HEART: Normal heart size. No pericardial effusion. Right superior and inferior pulmonary venous thrombus extending into right atrium as described above. LYMPH NODES: No lymphadenopathy. BONES, CHEST WALL: Unremarkable. No fracture or destructive lesion OTHER FINDINGS: Unremarkable. IMPRESSION: Thrombus identified in right lower lobe and right upper lobe pulmonary arteries. Right main pulmonary artery thrombus does not extend to the pulmonary artery saddle. There is linear filling defect in left lower lobe pulmonary artery segmental branch which may reflect chronic thrombus. There is pulmonary venous thrombosis seen in both the right superior and inferior pulmonary veins with the right inferior pulmonary venous thrombus extending into the left atrium. Please correlate with echocardiography. Additional minor findings as above.
[2017-06-13] MEDS ORDERED: Midazolam 2 MG/2 ML VIAL ONE (12:18)
[2017-06-13] MEDS ORDERED: Midazolam 2 MG/2 ML VIAL IVP ONE (12:30)
[2017-06-13] MEDS ORDERED: Morphine 4 MG/ML VIAL IVP ONE (13:58)
[2017-06-13] MEDS ORDERED: Lidocaine 2% Jelly (Uro-Jet) TOP ONE (14:45)
[2017-06-13 15:04] LABS: BASO % 0.4 % (0.0-2.0); EOS # 0.3 K/uL (0.0-0.7); EOS % 2.5 % (0.0-4.0); HEMATOCRIT 31.1 % (34.0-47.0); LYMPH # 1.8 K/uL (1.0-4.3); LYMPH % 13.3 % (20.0-40.0); MEAN CELL VOLUME 84.8 fL (81.0-99.0); MEAN CORPUSCULAR HEMOGLOBIN 29.1 pg (27.0-31.0); MEAN CORPUSCULAR HGB CONC 34.3 g/dL (33.0-37.0); MEAN PLATELET VOLUME 8.9 fL (7.2-11.7); MONO # 0.6 K/uL (0.0-0.8); MONO % 4.5 % (0.0-10.0); NRBC % 0.1 % (0.0-2.0); RED CELL DISTRIBUTION WIDTH 12.5 % (11.5-14.5)
[2017-06-13 15:21] LABS: WHITE BLOOD COUNT 13.2 K/uL (4.8-10.8)
[2017-06-13 17:23] VITALS: O2SAT 100
--- NOTE | 2017-06-13 18:39 | CP.CCUPN ---
<Jones Suggs - Last Filed: 06/13/17 18:33> CCU Subjective - Physician Review Subjective (Free Text): Patient seen and examined at bedside with family present. Patient was given alteplase today to dissolve a newly discovered thrombosis present in the right pulmonary vein and left atrium. Patient began to bleed and formed a hematoma at the right femoral catheter site after administration of 75% of alteplase dosage. She c/o of pain at the hemotoma site which was relieved with morphine. Patient denies chest pain, shortness of breath, cough, abdominal pain, diarrhea , constipation. 06/13/17 18:33 CCU Objective - Vital Signs / Intake & Output Vital Signs (Last 4 hours): Vital Signs Temp Pulse Resp BP Pulse Ox 06/13/17 18:19 120 H 31 H 134/59 L 06/13/17 18:04 121 H 29 H 138/51 L 100 06/13/17 18:00 117 H 33 H 96 06/13/17 17:48 117 H 20 122/68 100 06/13/17 17:33 117 H 29 H 121/67 100 06/13/17 17:19 114 H 21 115/58 L 100 06/13/17 17:03 106 H 27 H 122/62 06/13/17 17:00 103 H 24 06/13/17 16:57 99 H 17 99/43 L 06/13/17 16:54 107 H 19 82/52 L 100 06/13/17 16:49 113 H 24 128/68 100 06/13/17 16:34 106 H 26 H 126/63 81 L 06/13/17 16:18 102 H 28 H 135/66 100 06/13/17 16:03 98 H 28 H 137/67 100 06/13/17 16:00 97.5 F L 98 H 19 100 06/13/17 15:48 100 H 19 128/73 100 06/13/17 15:34 99 H 31 H 125/70 100 06/13/17 15:21 98 H 20 103/57 L 100 06/13/17 15:18 98 H 14 98/65 L 06/13/17 15:03 99 H 27 H 111/58 L 100 06/13/17 15:02 99 H 30 H 105/61 100 06/13/17 15:00 99 H 20 99 06/13/17 14:49 98 H 25 H 94/55 L 100 Intake and Output (Last 8hrs): Intake & Output 06/13/17 06/13/17 06/13/17 06:59 14:59 22:59 Intake Total 730.4 921.5 1125 Output Total 400 525 275 Balance 330.4 396.5 850 Weight 238 lb 1.588 oz Intake: IV 180 Intake, IV Amount 730.4 741.5 1125 Left hand 130.4 216.5 1125 right hand 600 525 Output: Urine 400 525 275 Urethral ([place]) 400 525 275 - Physical Exam Head: Positive for: Atraumatic Pupils: Positive for: PERRL Extroacular Muscles: Positive for: EOMI Mouth: Positive for: Moist Mucous Membranes Neck: Positive for: Normal Range of Motion Respiratory/Chest: Positive for: Clear to Auscultation. Negative for: Wheezes Cardiovascular: Positive for: Regular Rate and Rhythm, Normal S1, S2. Negative for: Murmurs Abdomen: Positive for: Normal Bowel Sounds. Negative for: Tenderness Upper Extremity: Positive for: Normal Inspection. Negative for: Edema Lower Extremity: Positive for: Normal Inspection, NORMAL PULSES, Other (8 cm hematoma in right inguinal area near femoral catheter site (from previous ekos) s/p alteplase adminstration). Negative for: Edema Neurological: Positive for: CN II-XII Intact, Speech Normal Skin: Positive for: Warm, Dry, Normal Color Psychiatric: Positive for: Alert, Oriented x 3, Normal Insight, Normal Concentration - Medications Active Medications: Active Medications Generic Name Dose Route Start Last Admin Trade Name Freq PRN Reason Stop Dose Admin Famotidine 20 mg 06/11/17 10:00 06/13/17 17:32 Pepcid PO Not Given BID MADELAINE Sodium Chloride 1,000 mls @ 75 mls/hr 06/10/17 19:30 06/13/17 06:12 Sodium Chloride 0.9% IV 75 mls/hr .[id number] MADELAINE Administration Oxycodone/Acetaminophen 1 tab 06/10/17 22:39 06/11/17 11:05 Percocet 5/325 Mg Tab PO 06/13/17 22:40 1 tab Q4H PRN Administration Pain, moderate (4-7) Oxycodone/Acetaminophen 2 tab 06/10/17 22:40 06/11/17 21:25 Percocet 5/325 Mg Tab PO 06/13/17 22:41 2 tab Q4H PRN Administration Pain, severe (8-10) - Patient Studies Lab Studies: Lab Studies 06/13/17 06/13/17 06/13/17 Range/Units 15:17 15:01 06:20 WBC 13.2 H D (4.8-10.8) K/uL RBC 3.67 L (3.80-5.20) Mil/uL Hgb 10.7 L (11.0-16.0) g/dL Hct 31.1 L (34.0-47.0) % MCV 84.8 (81.0-99.0) fL MCH 29.1 (27.0-31.0) pg MCHC 34.3 (33.0-37.0) g/dL RDW 12.5 (11.5-14.5) % Plt Count 178 (130-400) K/uL MPV 8.9 (7.2-11.7) fL Neut % (Auto) 79.3 H (50.0-75.0) % Lymph % (Auto) 13.3 L (20.0-40.0) % [place] % (Auto) 4.5 (0.0-10.0) % Eos % (Auto) 2.5 (0.0-4.0) % Baso % (Auto) 0.4 (0.0-2.0) % Neut # 10.4 H (1.8-7.0) K/uL Lymph # 1.8 (1.0-4.3) K/uL [place] # 0.6 (0.0-0.8) K/uL Eos # 0.3 (0.0-0.7) K/uL Baso # 0.0 (0.0-0.2) K/uL APTT 210 H* D (21-34) SECONDS Sodium (132-148) mmol/L Potassium (3.6-5.2) mmol/L Chloride (98-107) mmol/L Carbon Dioxide (22-30) mmol/L Anion Gap (10-20) BUN (7-17) mg/dL Creatinine (0.7-1.2) MG/DL Est GFR ( Amer) Est GFR (Non-Af Amer) Random Glucose (65-105) mg/dL Calcium (8.6-10.4) mg/dl Phosphorus (2.5-4.5) mg/dL Magnesium (1.6-2.3) mg/dL Total Bilirubin (0.2-1.3) mg/dL AST (14-36) U/L ALT (9-52) U/L Alkaline Phosphatase (38-126) U/L Total Protein (6.3-8.3) g/dL Albumin (3.5-5.0) g/dL Globulin (2.2-3.9) gm/dL Albumin/Globulin Ratio (1.0-2.1) Blood Type A NEGATIVE Antibody Screen Negative 06/13/17 06/13/17 06/12/17 Range/Units 06:20 06:20 20:24 WBC 8.4 (4.8-10.8) K/uL RBC 3.98 (3.80-5.20) Mil/uL Hgb 11.6 (11.0-16.0) g/dL Hct 33.8 L (34.0-47.0) % MCV 84.9 (81.0-99.0) fL MCH 29.1 (27.0-31.0) pg MCHC 34.3 (33.0-37.0) g/dL RDW 12.7 (11.5-14.5) % Plt Count 193 (130-400) K/uL MPV 8.5 (7.2-11.7) fL Neut % (Auto) 60.7 (50.0-75.0) % Lymph % (Auto) 30.3 (20.0-40.0) % [place] % (Auto) 4.2 (0.0-10.0) % Eos % (Auto) 4.5 H (0.0-4.0) % Baso % (Auto) 0.3 (0.0-2.0) % Neut # 5.1 (1.8-7.0) K/uL Lymph # 2.5 (1.0-4.3) K/uL [place] # 0.4 (0.0-0.8) K/uL Eos # 0.4 (0.0-0.7) K/uL Baso # 0.0 (0.0-0.2) K/uL APTT 32 D (21-34) SECONDS Sodium 138 (132-148) mmol/L Potassium 3.8 (3.6-5.2) mmol/L Chloride 106 (98-107) mmol/L Carbon Dioxide 22 (22-30) mmol/L Anion Gap 13 (10-20) BUN 5 L (7-17) mg/dL Creatinine 0.7 (0.7-1.2) MG/DL Est GFR ( Amer) > 60 Est GFR (Non-Af Amer) > 60 Random Glucose 82 (65-105) mg/dL Calcium 9.0 (8.6-10.4) mg/dl Phosphorus 3.3 (2.5-4.5) mg/dL Magnesium 1.9 (1.6-2.3) mg/dL Total Bilirubin 0.4 (0.2-1.3) mg/dL AST 17 (14-36) U/L ALT 26 (9-52) U/L Alkaline Phosphatase 54 (38-126) U/L Total Protein 6.3 (6.3-8.3) g/dL Albumin 3.4 L (3.5-5.0) g/dL Globulin 2.9 (2.2-3.9) gm/dL Albumin/Globulin Ratio 1.2 (1.0-2.1) Blood Type Antibody Screen Laboratory Results - last 24 hr 06/12/17 06/13/17 06/13/17 20:24 06:20 06:20 WBC 8.4 RBC 3.98 Hgb 11.6 Hct 33.8 L MCV 84.9 MCH 29.1 MCHC 34.3 RDW 12.7 Plt Count 193 MPV 8.5 Neut % (Auto) 60.7 Lymph % (Auto) 30.3 [place] % (Auto) 4.2 Eos % (Auto) 4.5 H Baso % (Auto) 0.3 Neut # 5.1 Lymph # 2.5 [place] # 0.4 Eos # 0.4 Baso # 0.0 APTT 32 D Sodium 138 Potassium 3.8 Chloride 106 Carbon Dioxide 22 Anion Gap 13 BUN 5 L Creatinine 0.7 Est GFR ( Amer) > 60 Est GFR (Non-Af Amer) > 60 Random Glucose 82 Calcium 9.0 Phosphorus 3.3 Magnesium 1.9 Total Bilirubin 0.4 AST 17 ALT 26 Alkaline Phosphatase 54 Total Protein 6.3 Albumin 3.4 L Globulin 2.9 Albumin/Globulin Ratio 1.2 Blood Type Antibody Screen 06/13/17 06/13/17 06/13/17 06:20 15:01 15:17 WBC 13.2 H D RBC 3.67 L Hgb 10.7 L Hct 31.1 L MCV 84.8 MCH 29.1 MCHC 34.3 RDW 12.5 Plt Count 178 MPV 8.9 Neut % (Auto) 79.3 H Lymph % (Auto) 13.3 L [place] % (Auto) 4.5 Eos % (Auto) 2.5 Baso % (Auto) 0.4 Neut # 10.4 H Lymph # 1.8 [place] # 0.6 Eos # 0.3 Baso # 0.0 APTT 210 H* D Sodium Potassium Chloride Carbon Dioxide Anion Gap BUN Creatinine Est GFR ( Amer) Est GFR (Non-Af Amer) Random Glucose Calcium Phosphorus Magnesium Total Bilirubin AST ALT Alkaline Phosphatase Total Protein Albumin Globulin Albumin/Globulin Ratio Blood Type A NEGATIVE Antibody Screen Negative Review of Systems - Constitutional Constitutional: absent: Fever, Chills, Sweats - Cardiovascular Cardiovascular: UNREMARKABLE - Respiratory Respiratory: UNREMARKABLE - Gastrointestinal Gastrointestinal: UNREMARKABLE - Genitourinary Genitourinary: UNREMARKABLE - Hematologic/Lymphatic Hematologic: Easy Bleeding Critical Care Progress Note - Nutrition Nutrition: Nutrition Category Date Time Status Heart Healthy Diet [DIET] Diets 06/12/17 Dinner Active Assessment/Plan - Assessment and Plan (Free Text) Assessment: 32 year old F w 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 Dr Aparicio, Dr Smart and Dr Grewal agreed to administer alteplase 100mg iv over 2 hours with hopes to dissolve superior/inferior pulmonary vein, left atrium, and right leg vein thrombi. The patient agreed with alteplase treatment after risks of bleeding were discussed with patient and family. After 90 minutes patient began to bleed from right femoral catheter site (present from previous ekos procedure ) and alteplase was discontinued. A hypercoaguable state is surmised given the patient is continuing to form new clots even in the presence of therapeutic heparin however studies to elicit an etiology cannot be done at this time given she is on anticoagulant. The patient will be transferred to [facility] as a cardiothoracic surgeon is available at that facility to perform any emergent intervention to treat left atrium thrombi, if needed. Pulmonary: sub-massive saddle PE in left and right pulmonary artery; thrombi in superior and inferior pulmonary vein extending into left atrium - s/p alteplase 100mg iv over 2 hours (stopped after 90 mins due to bleed) - s/p EKOS of left pulmonary artery, right pulm artery difficult to cannulate - EKOS of right pulmonary artery planned today - CT angio chest shows large central saddle like pulmonary arterial embolism - ECHO shows right heart strain, RV dilation, decrease in RV systolic function - heparin 800 units/hr - tPA 0.5mg/hr - liquid diet - stop OCP control - cardiology consult, Dr Aparicio on board Heme: DVT of RLE - venous duplex scan abnormal for DVT in RLE - Vascular surgery consult, Dr Jeong on board, thrombectomy planned - heme consult, Dr Dameon Martinez on board - H/H stable Prophylactic measure: -Diet: npo except meds -DVT: therapeutic heparin -GI: pepcid 20mg po daily Rest of organ systems: no active issues <Ben Smart - Last Filed: 06/13/17 18:58> CCU Objective - Vital Signs / Intake & Output Vital Signs (Last 4 hours): Vital Signs Temp Pulse Resp BP Pulse Ox 06/13/17 18:19 120 H 31 H 134/59 L 06/13/17 18:04 121 H 29 H 138/51 L 100 06/13/17 18:00 117 H 33 H 96 06/13/17 17:48 117 H 20 122/68 100 06/13/17 17:33 117 H 29 H 121/67 100 06/13/17 17:19 114 H 21 115/58 L 100 06/13/17 17:03 106 H 27 H 122/62 06/13/17 17:00 103 H 24 06/13/17 16:57 99 H 17 99/43 L 06/13/17 16:54 107 H 19 82/52 L 100 06/13/17 16:49 113 H 24 128/68 100 06/13/17 16:34 106 H 26 H 126/63 81 L 06/13/17 16:18 102 H 28 H 135/66 100 06/13/17 16:03 98 H 28 H 137/67 100 06/13/17 16:00 97.5 F L 98 H 19 100 06/13/17 15:48 100 H 19 128/73 100 06/13/17 15:34 99 H 31 H 125/70 100 06/13/17 15:21 98 H 20 103/57 L 100 06/13/17 15:18 98 H 14 98/65 L 06/13/17 15:03 99 H 27 H 111/58 L 100 06/13/17 15:02 99 H 30 H 105/61 100 06/13/17 15:00 99 H 20 99 Intake and Output (Last 8hrs): Intake & Output 06/13/17 06/13/17 06/13/17 06:59 14:59 22:59 Intake Total 730.4 921.5 1125 Output Total 400 525 275 Balance 330.4 396.5 850 Weight 238 lb 1.588 oz Intake: IV 180 Intake, IV Amount 730.4 741.5 1125 Left hand 130.4 216.5 1125 right hand 600 525 Output: Urine 400 525 275 Urethral ([place]) 400 525 275 - Medications Active Medications: Active Medications Generic Name Dose Route Start Last Admin Trade Name Freq PRN Reason Stop Dose Admin Famotidine 20 mg 06/11/17 10:00 06/13/17 17:32 Pepcid PO Not Given BID MADELAINE Sodium Chloride 1,000 mls @ 75 mls/hr 06/10/17 19:30 06/13/17 06:12 Sodium Chloride 0.9% IV 75 mls/hr .[id number] MADELAINE Administration Oxycodone/Acetaminophen 1 tab 06/10/17 22:39 06/11/17 11:05 Percocet 5/325 Mg Tab PO 06/13/17 22:40 1 tab Q4H PRN Administration Pain, moderate (4-7) Oxycodone/Acetaminophen 2 tab 06/10/17 22:40 06/11/17 21:25 Percocet 5/325 Mg Tab PO 06/13/17 22:41 2 tab Q4H PRN Administration Pain, severe (8-10) - Patient Studies Lab Studies: Lab Studies 06/13/17 06/13/17 06/13/17 Range/Units 15:17 15:01 06:20 WBC 13.2 H D (4.8-10.8) K/uL RBC 3.67 L (3.80-5.20) Mil/uL Hgb 10.7 L (11.0-16.0) g/dL Hct 31.1 L (34.0-47.0) % MCV 84.8 (81.0-99.0) fL MCH 29.1 (27.0-31.0) pg MCHC 34.3 (33.0-37.0) g/dL RDW 12.5 (11.5-14.5) % Plt Count 178 (130-400) K/uL MPV 8.9 (7.2-11.7) fL Neut % (Auto) 79.3 H (50.0-75.0) % Lymph % (Auto) 13.3 L (20.0-40.0) % [place] % (Auto) 4.5 (0.0-10.0) % Eos % (Auto) 2.5 (0.0-4.0) % Baso % (Auto) 0.4 (0.0-2.0) % Neut # 10.4 H (1.8-7.0) K/uL Lymph # 1.8 (1.0-4.3) K/uL [place] # 0.6 (0.0-0.8) K/uL Eos # 0.3 (0.0-0.7) K/uL Baso # 0.0 (0.0-0.2) K/uL APTT 210 H* D (21-34) SECONDS Sodium (132-148) mmol/L Potassium (3.6-5.2) mmol/L Chloride (98-107) mmol/L Carbon Dioxide (22-30) mmol/L Anion Gap (10-20) BUN (7-17) mg/dL Creatinine (0.7-1.2) MG/DL Est GFR ( Amer) Est GFR (Non-Af Amer) Random Glucose (65-105) mg/dL Calcium (8.6-10.4) mg/dl Phosphorus (2.5-4.5) mg/dL Magnesium (1.6-2.3) mg/dL Total Bilirubin (0.2-1.3) mg/dL AST (14-36) U/L ALT (9-52) U/L Alkaline Phosphatase (38-126) U/L Total Protein (6.3-8.3) g/dL Albumin (3.5-5.0) g/dL Globulin (2.2-3.9) gm/dL Albumin/Globulin Ratio (1.0-2.1) Blood Type A NEGATIVE Antibody Screen Negative 06/13/17 06/13/17 06/12/17 Range/Units 06:20 06:20 20:24 WBC 8.4 (4.8-10.8) K/uL RBC 3.98 (3.80-5.20) Mil/uL Hgb 11.6 (11.0-16.0) g/dL Hct 33.8 L (34.0-47.0) % MCV 84.9 (81.0-99.0) fL MCH 29.1 (27.0-31.0) pg MCHC 34.3 (33.0-37.0) g/dL RDW 12.7 (11.5-14.5) % Plt Count 193 (130-400) K/uL MPV 8.5 (7.2-11.7) fL Neut % (Auto) 60.7 (50.0-75.0) % Lymph % (Auto) 30.3 (20.0-40.0) % [place] % (Auto) 4.2 (0.0-10.0) % Eos % (Auto) 4.5 H (0.0-4.0) % Baso % (Auto) 0.3 (0.0-2.0) % Neut # 5.1 (1.8-7.0) K/uL Lymph # 2.5 (1.0-4.3) K/uL [place] # 0.4 (0.0-0.8) K/uL Eos # 0.4 (0.0-0.7) K/uL Baso # 0.0 (0.0-0.2) K/uL APTT 32 D (21-34) SECONDS Sodium 138 (132-148) mmol/L Potassium 3.8 (3.6-5.2) mmol/L Chloride 106 (98-107) mmol/L Carbon Dioxide 22 (22-30) mmol/L Anion Gap 13 (10-20) BUN 5 L (7-17) mg/dL Creatinine 0.7 (0.7-1.2) MG/DL Est GFR ( Amer) > 60 Est GFR (Non-Af Amer) > 60 Random Glucose 82 (65-105) mg/dL Calcium 9.0 (8.6-10.4) mg/dl Phosphorus 3.3 (2.5-4.5) mg/dL Magnesium 1.9 (1.6-2.3) mg/dL Total Bilirubin 0.4 (0.2-1.3) mg/dL AST 17 (14-36) U/L ALT 26 (9-52) U/L Alkaline Phosphatase 54 (38-126) U/L Total Protein 6.3 (6.3-8.3) g/dL Albumin 3.4 L (3.5-5.0) g/dL Globulin 2.9 (2.2-3.9) gm/dL Albumin/Globulin Ratio 1.2 (1.0-2.1) Blood Type Antibody Screen Laboratory Results - last 24 hr 06/12/17 06/13/17 06/13/17 20:24 06:20 06:20 WBC 8.4 RBC 3.98 Hgb 11.6 Hct 33.8 L MCV 84.9 MCH 29.1 MCHC 34.3 RDW 12.7 Plt Count 193 MPV 8.5 Neut % (Auto) 60.7 Lymph % (Auto) 30.3 [place] % (Auto) 4.2 Eos % (Auto) 4.5 H Baso % (Auto) 0.3 Neut # 5.1 Lymph # 2.5 [place] # 0.4 Eos # 0.4 Baso # 0.0 APTT 32 D Sodium 138 Potassium 3.8 Chloride 106 Carbon Dioxide 22 Anion Gap 13 BUN 5 L Creatinine 0.7 Est GFR ( Amer) > 60 Est GFR (Non-Af Amer) > 60 Random Glucose 82 Calcium 9.0 Phosphorus 3.3 Magnesium 1.9 Total Bilirubin 0.4 AST 17 ALT 26 Alkaline Phosphatase 54 Total Protein 6.3 Albumin 3.4 L Globulin 2.9 Albumin/Globulin Ratio 1.2 Blood Type Antibody Screen 06/13/17 06/13/17 06/13/17 06:20 15:01 15:17 WBC 13.2 H D RBC 3.67 L Hgb 10.7 L Hct 31.1 L MCV 84.8 MCH 29.1 MCHC 34.3 RDW 12.5 Plt Count 178 MPV 8.9 Neut % (Auto) 79.3 H Lymph % (Auto) 13.3 L [place] % (Auto) 4.5 Eos % (Auto) 2.5 Baso % (Auto) 0.4 Neut # 10.4 H Lymph # 1.8 [place] # 0.6 Eos # 0.3 Baso # 0.0 APTT 210 H* D Sodium Potassium Chloride Carbon Dioxide Anion Gap BUN Creatinine Est GFR ( Amer) Est GFR (Non-Af Amer) Random Glucose Calcium Phosphorus Magnesium Total Bilirubin AST ALT Alkaline Phosphatase Total Protein Albumin Globulin Albumin/Globulin Ratio Blood Type A NEGATIVE Antibody Screen Negative Critical Care Progress Note - Nutrition Nutrition: Nutrition Category Date Time Status Heart Healthy Diet [DIET] Diets 06/12/17 Dinner Active Attending/Attestation - Attestation I have personally seen and examined this patient.: Yes I have fully participated in the care of the patient.: Yes I have reviewed all pertinent clinical information: Yes Notes (Text): 06/13/17 18:55 Patient seen and examined in the intensive care unit. Case discussed with house staff in the morning rounds CT angiogram done in the morning showed new thrombus in the pulmonary vein extending into left atrium. After discussing with the family and patient explaining risks and benefits TPA 100 mg IV was given. After receiving 75 mg TPA patient started bleeding in the right groin. TPA infusion stopped and a pressure bandage was placed. Patient seen by vascular and cardiology. Repeat hemoglobin 10.7. Remains normotensive. After discussing with the family decision was made to transfer the patient to [facility] for further thrombus management. Patient hemodynamically stable and awaiting for transfer to [facility]
[2017-06-13] MEDS ORDERED: Morphine 4 MG/ML VIAL IV STA (20:03)
[2017-06-13 21:06] VITALS: PULSE 127
[2017-06-13 21:08] VITALS: TEMP 98
[2017-06-13] MEDS: Oxycodone/Acetaminophen 5/325 mg Tab PO PRN (22:12)
[2017-06-13 22:48] VITALS: BP 127/53; RESP 31
--- NOTE | 2017-06-15 21:23 | CP.PCM.PN ---
Subjective - Date & Time of Evaluation Date of Evaluation: 06/12/17 Time of Evaluation: 09:05 - Subjective Subjective: Patient seen and evaluated Denies chest pain Improved breathing Denies groin pain Review of Systems - Constitutional Constitutional: As Per HPI. absent: Chills, Fever, Weakness - EENT Eyes: As Per HPI. absent: Change in Vision, Loss of Vision Ears: As Per HPI. absent: Dizziness Nose/Mouth/Throat: As Per HPI. absent: Nasal Congestion, Dry Mouth - Cardiovascular Cardiovascular: As Per HPI, Dyspnea, Dyspnea on Exertion, Leg Edema. absent: Chest Pain - Respiratory Respiratory: As Per HPI, Dyspnea, Dyspnea on Exertion. absent: Cough, Hemoptysis, Chest Congestion - Gastrointestinal Gastrointestinal: As Per HPI. absent: Abdominal Pain, Diarrhea, Nausea, Vomiting - Musculoskeletal Musculoskeletal: As Per HPI. absent: Numbness, Tingling - Integumentary Integumentary: As Per HPI, Swelling. absent: Change in Hair, Skin Pain - Neurological Neurological: As Per HPI. absent: Dizziness, Numbness, Loss of Vision, Tremor, Weakness - Psychiatric Psychiatric: As Per HPI, Anxiety - Endocrine Endocrine: As Per HPI - Hematologic/Lymphatic Hematologic: As Per HPI Physical Exam - Constitutional Appears: Well, Non-toxic, No Acute Distress - Head Exam Head Exam: ATRAUMATIC, NORMAL INSPECTION - Eye Exam Eye Exam: Normal appearance Pupil Exam: PERRL - ENT Exam ENT Exam: Mucous Membranes Moist - Neck Exam Neck exam: Positive for: Normal Inspection - Respiratory Exam Respiratory Exam: Clear to Auscultation Bilateral, NORMAL BREATHING PATTERN. absent: Wheezes, Respiratory Distress - Cardiovascular Exam Cardiovascular Exam: REGULAR RHYTHM, +S1, +S2 - GI/Abdominal Exam GI & Abdominal Exam: Normal Bowel Sounds, Soft. absent: Tenderness - Extremities Exam Extremities exam: Positive for: pedal pulses present Additional comments: slight right lower extremity swelling, no erythema, no significant difference in temperature compared to the left - Neurological Exam Neurological exam: Alert, Oriented x3 - Psychiatric Exam Psychiatric exam: Normal Affect, Normal Mood - Skin Skin Exam: Dry, Normal Color, Warm Objective - Vital Signs/Intake and Output Vital Signs (last 24 hours): Temp Pulse Resp BP Pulse Ox 98 F 127 H 31 H 127/53 L 100 06/13/17 20:00 06/13/17 22:04 06/13/17 22:04 06/13/17 22:04 06/13/17 22:04 - Labs Labs: 06/13/17 15:01 06/13/17 06:20 PT 12.0 SECONDS (9.7-12.2) 06/11/17 16:17 INR 1.1 06/11/17 16:17 APTT 210 SECONDS (21-34) H* D 06/13/17 06:20 Assessment and Plan - Assessment and Plan (Free Text) Assessment: Assessment/Plan - Assessment and Plan (Free Text) Assessment: 32 year old F w sub-massive saddle PE s/p EKOS catheter insertion of left pulmonary artery Today 06/12/17: repeat echo performed today, still pending official report. To determine intervention regarding R DVT and saddle embolus. Pulmonary: sub-massive saddle PE; - s/p EKOS of left pulmonary artery, right pulm artery difficult to cannulate - EKOS at a later date basing on rpt CTA finding - CT angio chest shows large central saddle like pulmonary arterial embolism - ECHO shows right heart strain, RV dilation, decrease in RV systolic function -IV Heparin with PE protocol - liquid diet - stop OCP control Heme: DVT of RLE - venous duplex scan abnormal for DVT in RLE - Vascular surgery consult, Dr Jeong on board, thrombectomy planned - heme consult, Dr Dameon Martinez on board - H/H stable Prophylactic measure: -Diet: npo except meds -DVT: therapeutic heparin -GI: pepcid 20mg po daily Rest of organ systems: no active issues
--- NOTE | 2017-06-15 21:24 | CP.PCM.PN ---
Subjective - Date & Time of Evaluation Date of Evaluation: 06/13/17 Time of Evaluation: 18:30 - Subjective Subjective: Patient seen and examined at bedside with family present. Patient was given alteplase today to dissolve a newly discovered thrombosis present in the right pulmonary vein and left atrium. (Earlier today due to high risk of stroke due to left sided thrombus, systemic tPA 100mg planned with the Critical care attending. Had a meeting with the patient, her mom and sisters. Explained the benefits of clot dossolution of left heart and preventing a massive stroke. Explained the risks of bleeding in the brain, intestine and at the Right groin site due to the prior procedure. Patient and family agreed to proceed with systemic 100mg tPA administration) After tPA administration, Patient began to bleed and formed a hematoma at the right femoral catheter site after administration of 75% of alteplase dosage. She c/o of pain at the hemotoma site which was relieved with morphine. Patient denies chest pain, shortness of breath, cough, abdominal pain, diarrhea, constipation Physical Examination - Physical Exam Head: Positive for: Atraumatic Pupils: Positive for: PERRL Extroacular Muscles: Positive for: EOMI Mouth: Positive for: Moist Mucous Membranes Neck: Positive for: Normal Range of Motion Respiratory/Chest: Positive for: Clear to Auscultation. Negative for: Wheezes Cardiovascular: Positive for: Regular Rate and Rhythm, Normal S1, S2. Negative for: Murmurs Abdomen: Positive for: Normal Bowel Sounds. Negative for: Tenderness Upper Extremity: Positive for: Normal Inspection. Negative for: Edema Lower Extremity: Positive for: Normal Inspection, NORMAL PULSES, Other (8 cm hematoma in right inguinal area near femoral catheter site (from previous ekos) s/p alteplase adminstration). Negative for: Edema Neurological: Positive for: CN II-XII Intact, Speech Normal Skin: Positive for: Warm, Dry, Normal Color Psychiatric: Positive for: Alert, Oriented x 3, Normal Insight, Normal Concentration Objective - Vital Signs/Intake and Output Vital Signs (last 24 hours): Temp Pulse Resp BP Pulse Ox 98 F 127 H 31 H 127/53 L 100 06/13/17 20:00 06/13/17 22:04 06/13/17 22:04 06/13/17 22:04 06/13/17 22:04 - Labs Labs: 06/13/17 15:01 06/13/17 06:20 PT 12.0 SECONDS (9.7-12.2) 06/11/17 16:17 INR 1.1 06/11/17 16:17 APTT 210 SECONDS (21-34) H* D 06/13/17 06:20 Assessment and Plan - Assessment and Plan (Free Text) Assessment: 32 year old F w 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 I, Dr Smart and Dr Grewal agreed to administer alteplase 100mg iv over 2 hours with hopes to dissolve superior/inferior pulmonary vein, left atrium, and right leg vein thrombi. The patient agreed with alteplase treatment after risks of bleeding were discussed with patient and family. After 90 minutes patient began to bleed from right femoral catheter site (present from previous ekos procedure) and alteplase was discontinued. A hypercoaguable state is surmised given the patient is continuing to form new clots even in the presence of therapeutic heparin however studies to elicit an etiology cannot be done at this time given she is on anticoagulant. The patient will be transferred to [facility] as a cardiothoracic surgeon is available at that facility to perform any emergent intervention to treat left atrium thrombi, if needed. Pulmonary: sub-massive saddle PE in left and right pulmonary artery; thrombi in superior and inferior pulmonary vein extending into left atrium - s/p alteplase 100mg iv over 2 hours (stopped after 90 mins due to bleed) - s/p EKOS of left pulmonary artery, right pulm artery difficult to cannulate - EKOS of right pulmonary artery planned today - CT angio chest shows large central saddle like pulmonary arterial embolism - ECHO shows right heart strain, RV dilation, decrease in RV systolic function - heparin 800 units/hr - liquid diet - stop OCP control Heme: DVT of RLE - venous duplex scan abnormal for DVT in RLE - Vascular surgery consult, Dr Jeong on board, thrombectomy planned - heme consult, Dr Dameon Martinez on board - H/H stable Prophylactic measure: -Diet: npo except meds -DVT: therapeutic heparin -GI: pepcid 20mg po daily Rest of organ systems: no active issuesRemains normotensive. After discussing with the family decision was made to transfer the patient to [facility] for further thrombus management. Patient hemodynamically stable and awaiting for transfer to [facility]
--- NOTE | 2017-06-16 09:27 | VASCLAB ---
PROCEDURE: Right Lower Extremity Venous Duplex Exam. HISTORY: dvt s/p intervention PRIORS: None. TECHNIQUE: Right common femoral, femoral, popliteal and posterior tibial, peroneal and great saphenous veins were evaluated. Flow was assessed with color Doppler, compressibility, assessment of phasic flow and augmentation response. Report prepared by ZACH Redmond, RVT FINDINGS: RIGHT: 1. Common Femoral Vein: 1.1. Compressibility - : Thrombus - : Flow - : Augmentation -: Reflux - . 2. Femoral Vein: 2.1. Compressibility - Partial: Thrombus - Acute: Flow - Absent : Augmentation -None: Reflux - None. 3. Popliteal Vein: 3.1. Compressibility - Partial: Thrombus - Acute: Flow - Reduced : Augmentation -None: Reflux - None. 4. Posterior Tibial Vein: 4.1. Compressibility - Partial: Thrombus - Acute: Flow - Absent : Augmentation -None: Reflux - None. 5. Peroneal Vein: 5.1. Compressibility - Partial: Thrombus - Acute: Flow - Absent : Augmentation -None: Reflux - None. 6. Great Saphenous Vein: 6.1. Compressibility - Fully compressible: Thrombus -None: Flow - Phasic: Augmentation - Normal: Reflux - None. OTHER FINDINGS: ADAMS Walker notified about the findings. The right CFV not imaged due to bandage in the groin. IMPRESSION: Acute thrombosis of the right femoral, popliteal, posterior tibial and peroneal veins with severe reduction of the venous return. Normal venous flow noted in the left common femoral vein.
--- NOTE | 2017-06-22 16:13 | CARDCATH ---
PROCEDURE DATE: 06/10/2017 PROCEDURES: 1. Pulmonary angiogram. 2. Ultrasound guided right common femoral vein access. 3. EKOS infusion catheter insertion into the pulmonary artery. REFERRING PHYSICIAN: 1. Dr. Berry Contreras. 2. Dr. Victor M Grewal. PERFORMING PHYSICIAN: Dr. Vinay Aparicio. CLINICAL INDICATIONS: 1. Large pulmonary embolism. 2. Dyspnea. 3. Right ventricular strain on echo and CT angiogram. 4. Severe pulmonary hypertension. 5. Tachycardia. 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 Subsequent workup has revealed large pulmonary embolism and deep vein thrombosis. Echocardiogram and CT angiogram confirmed large pulmonary embolism with severe pulmonary hypertension and right ventricular strain. I discussed with the patient and her mother and the family about the useful role of EKOS thrombolytic therapy. EKOS thrombolytic therapy as explained as a local delivery clot-bursting medications of the lung. In the long run, it may be advantageous by dissolving the clot and decreasing the pressure from the lung. I explained to the patient and the family about the risk of the procedure, which include brain hemorrhage, hemorrhaging to the intestinal tract, vascular complications including hemorrhage and bleeding into the groin. The patient and family agreed for the procedure. PROCEDURE: After informed consent the patient was prepped and draped in the usual sterile fashion. 2% lidocaine was given in the right groin, due to obesity it was a difficult groin access. Ultrasound assistance was used. Using the micropuncture technique right femoral vein was active. Initial pulmonary angiogram confirmed pulmonary embolism. Due to probably occlusive thrombus, it was difficult to cannulate right pulmonary artery. However, the left pulmonary artery was cannulated. EKOS catheter was inserted so that the drug can be delivered from the RV output tract to RJ outflow tract main pulmonary artery and left pulmonary artery. A 4 mg of TPA bolus given. Later 1 mg per hour TPA infusion started. Using the protocol coolant and heparin 500 units per hour was started. The patient tolerated the procedure well. After completion of the procedure, the patient was transferred to intensive care unit for further observation. Vinay Aparicio MD
== END 2017-06-13 22:30 | disposition short-term general hospital (02) | DRG 299 ==
LOC: C.ER 09:45 → C.9I 11:15
PROVIDERS: ADMIT Internal Medicine; ATTEND Internal Medicine
PROC: 03HY33Z Insertion of Infusion Device into Upper Artery, Percutaneous Approach (ICD-10-PCS; principal; 2017-06-10)
PROC: 3E05317 Introduction of Other Thrombolytic into Peripheral Artery, Percutaneous Approach (ICD-10-PCS; 2017-06-10)
PROC: B30TZZZ Plain Radiography of Left Pulmonary Artery (ICD-10-PCS; 2017-06-10)
PROC: B30SZZZ Plain Radiography of Right Pulmonary Artery (ICD-10-PCS; 2017-06-10)
DX: I82.411 Acute embolism and thrombosis of right femoral vein (principal); I26.92 Saddle embolus of pulmonary artery without acute cor pulmonale; I27.2 Other secondary pulmonary hypertension; I82.431 Acute embolism and thrombosis of right popliteal vein; I82.441 Acute embolism and thrombosis of right tibial vein; K21.9 Gastro-esophageal reflux disease without esophagitis